=== PATIENT | female | born 1985 | race Caucasian/White ===

== ENCOUNTER 2016-07-17 04:27 | Emergency (ER) | payer BC, OTHER ==
[2016-07-17] MEDS ORDERED: KETOROLAC 60 MG/2 ML VIAL IVP STA (04:43)
[2016-07-17] MEDS ORDERED: MAG HYDROX/AL HYDROX/SIMETH 30 ML, HYOSCYAMINE ELIXIR 10 ML, CIMETIDINE HCL 300 MG PO STA ×3 (04:45)
--- NOTE | 2016-07-17 04:45 | ED ---
General Adult HPI - General Stated complaint: Chest pains Time Seen by Provider: 07/17/16 04:35 Source: RN notes reviewed - History of Present Illness Initial comments: This is a 30-year-old female who presents emergency Department complaining of chest pain that is at the base of her sternum. Patient states pressing on it makes it feel better. Patient states she has had it over 50 times in the last year. Patient states she seen a booster operator as well as had a stress test all of which was negative. Patient states she had the pain again tonight usually laying down makes it worse and sitting up makes it better however tonight sitting up did not seem to relieve it so she came to the emergency department. Patient states she's been here multiple times before. Patient denies any fever chills or cough. Patient denies lifting anything or moving anything heavy recently. Patient states the pain is sharp in nature. Patient denies any diaphoresis patient denies any shortness of breath patient denies any nausea or vomiting. Patient did not take anything for the pain. Patient does states she is a smoker. She denies diabetes or hypertension - Related Data Home Medications Medication Instructions Recorded Confirmed No Known Home Medications [No 07/17/16 07/17/16 Known Home Medications] Allergies Allergy/AdvReac Type Severity Reaction Status Date / Time No Known Allergies Allergy Verified 11/08/15 06:56 Review of Systems ROS Statement: Those systems with pertinent positive or pertinent negative responses have been documented in the HPI. ROS Other: All systems not noted in ROS Statement are negative. Past Medical History Past Medical History: GERD/Reflux, Hyperlipidemia Additional Past Medical History / Comment(s): 03/03/15 Pt presented to [facility] ER with L sided chest pain which started today while at work here at [facility]. Pain is constant and sharp and is stabbing. Pain rediated thru toher back and she had diaphoresis and vomited. Pt being admitted with clinical impression of chest pain, unstable angina pectoris. Other HX: Pt states she has high lipids but not on medication. History of Any Multi-Drug Resistant Organisms: None Reported Past Surgical History: No Surgical Hx Reported, Back Surgery Additional Past Surgical History / Comment(s): 06/24/14 laminectomy and decompression L5-S1 and discectomy for decompression L5-S1, 05/06/14 EGD and colonoscopy with bxs which were negative. Additional Past Anesthesia/Blood Transfusion Reaction / Comment(s): Pt states she had a severe headach post op day 1. Past Psychological History: Anxiety Additional Psychological History / Comment(s): Pt lives with her boyfriend. Pt is independent. She works in [facility] de[employer] Smoking Status: Current every day smoker Past Alcohol Use History: Rare Additional Past Alcohol Use History / Comment(s): Pt started smoking at age 13 yrs old and is a ppd to 1 1/2 ppd smoker. Past Drug Use History: None Reported - Past Family History Mother Family Medical History: Cancer Father Family Medical History: Coronary Artery Disease (CAD), Myocardial Infarction ([place] ) General Exam - General Exam Comments Initial Comments: GENERAL: Patient is well-developed and well-nourished. Patient is nontoxic and well- hydrated and is in mild distress. ENT: Neck is soft and supple. No significant lymphadenopathy is noted. Oropharynx is clear. Moist mucous membranes. Neck has full range of motion without eliciting any pain. There is no thyroid enlargement and no masses were felt. EYES: The sclera were anicteric and conjunctiva were pink and moist. Extraocular movements were intact and pupils were equal round and reactive to light. Eyelids were unremarkable. PULMONARY: Unlabored respirations. Good breath sounds bilaterally. No audible rales rhonchi or wheezing was noted. CARDIOVASCULAR: There is a regular rate and rhythm without any murmurs gallops or rubs. ABDOMEN: Soft and nontender with normal bowel sounds. No palpable organomegaly was noted. There is no palpable pulsatile mass. SKIN: Skin is clear with no lesions or rashes and otherwise unremarkable. NEUROLOGIC: Patient is alert and oriented x3. Cranial nerves II through XII are grossly intact. Motor and sensory are also intact. Normal speech, volume and content. Symmetrical smile. MUSCULOSKELETAL: Normal extremities with adequate strength and full range of motion. No lower extremity swelling or edema. No calf tenderness. LYMPHATICS: No significant lymphadenopathy is noted PSYCHIATRIC: Normal psychiatric evaluation. Course Vital Signs 07/17/16 07/17/16 04:44 05:19 Temperature 97.2 F L Pulse Rate 68 65 Respiratory 20 18 Rate Blood Pressure 152/105 135/82 O2 Sat by Pulse 98 100 Oximetry Medical Decision Making - Medical Decision Making EKG shows a normal sinus rhythm at 73 bpm FL interval is 146 dresses 84 QT interval 392 QTC is 431. Patient's EKG shows no ST segment elevation or depression. I went back and spoke with the patient patient stated that she took the GI cocktail and reduced her symptoms considerably. Patient states she did not want to stay in the hospital so she'll follow-up with Dr. Sena. Patient states she wasn't concerned about it being anything serious because she has had over 50 times in the last year. - Lab Data Result diagrams: 07/17/16 04:48 07/17/16 04:48 Lab Results 07/17/16 07/17/16 07/17/16 Range/Units 04:48 04:48 04:48 WBC 8.9 (3.8-10.6) k/uL RBC 4.91 (3.80-5.40) m/uL Hgb 15.2 (11.4-16.0) gm/dL Hct 45.6 (34.0-46.0) % MCV 92.9 (80.0-100.0) fL MCH 31.0 (25.0-35.0) pg MCHC 33.4 (31.0-37.0) g/dL RDW 12.9 (11.5-15.5) % Plt Count 246 (150-450) k/uL Neutrophils % 59 % Lymphocytes % 29 % Monocytes % 5 % Eosinophils % 3 % Basophils % 2 % Neutrophils # 5.3 (1.3-7.7) k/uL Lymphocytes # 2.6 (1.0-4.8) k/uL Monocytes # 0.4 (0-1.0) k/uL Eosinophils # 0.3 (0-0.7) k/uL Basophils # 0.2 (0-0.2) k/uL PT (9.0-12.0) sec INR (<1.1) APTT (22.0-30.0) sec Sodium 141 (137-145) mmol/L Potassium 3.7 (3.5-5.1) mmol/L Chloride 106 (98-107) mmol/L Carbon Dioxide 28 (22-30) mmol/L Anion Gap 7 mmol/L BUN 7 (7-17) mg/dL Creatinine 0.61 (0.52-1.04) mg/dL Est GFR (MDRD) Af Amer >60 (>60 ml/min/1.73 sqM) Est GFR (MDRD) Non-Af >60 (>60 ml/min/1.73 sqM) Glucose 117 H (74-99) mg/dL Calcium 9.2 (8.4-10.2) mg/dL Magnesium 2.0 (1.6-2.3) mg/dL Total Bilirubin 0.4 (0.2-1.3) mg/dL AST 20 (14-36) U/L ALT 19 (9-52) U/L Alkaline Phosphatase 66 (38-126) U/L Total Creatine Kinase 80 (30-135) U/L CK-MB (CK-2) 0.9 (0.0-2.4) ng/mL CK-MB (CK-2) Rel Index 1.1 Troponin I <0.012 (0.000-0.034) ng/mL Total Protein 7.1 (6.3-8.2) g/dL Albumin 3.9 (3.5-5.0) g/dL Amylase 64 (30-110) U/L Lipase 156 (23-300) U/L // Range/Units 04:48 WBC (3.8-10.6) k/uL RBC (3.80-5.40) m/uL Hgb (11.4-16.0) gm/dL Hct (34.0-46.0) % MCV (80.0-100.0) fL MCH (25.0-35.0) pg MCHC (31.0-37.0) g/dL RDW (11.5-15.5) % Plt Count (150-450) k/uL Neutrophils % % Lymphocytes % % Monocytes % % Eosinophils % % Basophils % % Neutrophils # (1.3-7.7) k/uL Lymphocytes # (1.0-4.8) k/uL Monocytes # (0-1.0) k/uL Eosinophils # (0-0.7) k/uL Basophils # (0-0.2) k/uL PT 11.0 (9.0-12.0) sec INR 1.1 (<1.1) APTT 25.0 (22.0-30.0) sec Sodium (137-145) mmol/L Potassium (3.5-5.1) mmol/L Chloride (98-107) mmol/L Carbon Dioxide (22-30) mmol/L Anion Gap mmol/L BUN (7-17) mg/dL Creatinine (0.52-1.04) mg/dL Est GFR (MDRD) Af Amer (>60 ml/min/1.73 sqM) Est GFR (MDRD) Non-Af (>60 ml/min/1.73 sqM) Glucose (74-99) mg/dL Calcium (8.4-10.2) mg/dL Magnesium (1.6-2.3) mg/dL Total Bilirubin (0.2-1.3) mg/dL AST (14-36) U/L ALT (9-52) U/L Alkaline Phosphatase (38-126) U/L Total Creatine Kinase (30-135) U/L CK-MB (CK-2) (0.0-2.4) ng/mL CK-MB (CK-2) Rel Index Troponin I (0.000-0.034) ng/mL Total Protein (6.3-8.2) g/dL Albumin (3.5-5.0) g/dL Amylase (30-110) U/L Lipase (23-300) U/L Disposition Clinical Impression: Atypical chest pain Disposition: HOME SELF-CARE Condition: Good Instructions: Chest Pain (ED) Referrals: Bret Parker MD [Primary Care Provider] - 1-2 days Time of Disposition: 06:14
[2016-07-17 05:11] LABS: Basophils # (A) 0.2 k/uL (0-0.2); Basophils % (A) 2 %; CH 31.6; CHCM 34.1; Eosinophils # (A) 0.3 k/uL (0-0.7); Eosinophils % (A) 3 %; HCT 45.6 % (34.0-46.0); HDW 2.25; HGB 15.2 gm/dL (11.4-16.0); Luc # (Auto) 0.21; Luc % (Auto) 2; Lymphocytes # (A) 2.6 k/uL (1.0-4.8); Lymphocytes % (A) 29 %; MCHC 33.4 g/dL (31.0-37.0); MCV 92.9 fL (80.0-100.0); Mean Platelet Volume 7.8; Monocytes # (A) 0.4 k/uL (0-1.0); Monocytes % (A) 5 %; Neutrophils # (A) 5.3 k/uL (1.3-7.7); Neutrophils % (A) 59 %; RBC 4.91 m/uL (3.80-5.40); RDW 12.9 % (11.5-15.5); WBC 8.9 k/uL (3.8-10.6); WBC (Perox) 8.56
[2016-07-17 05:19] VITALS: RESP 18
[2016-07-17 05:23] LABS: INR 1.1 (<1.1)
[2016-07-17 05:39] LABS: ALT 19 U/L (9-52); AST 20 U/L (14-36); Alkaline Phosphatase 66 U/L (38-126); Amylase 64 U/L (30-110); Anion Gap 7 mmol/L; Blood Urea Nitrogen 7 mg/dL (7-17); Calcium 9.2 mg/dL (8.4-10.2); Carbon Dioxide 28 mmol/L (22-30); Chloride 106 mmol/L (98-107); Glucose 117 mg/dL (74-99); Non-African American GFR(MDRD) >60 (>60 ml/min/1.73 sqM); Potassium 3.7 mmol/L (3.5-5.1); Sodium 141 mmol/L (137-145); Total Bilirubin 0.4 mg/dL (0.2-1.3); Total Protein 7.1 g/dL (6.3-8.2)
--- NOTE | 2016-07-17 05:39 | XR ---
EXAM: XR Chest, 2 Views. CLINICAL HISTORY: Reason: Chest Pain TECHNIQUE: Frontal and lateral views of the chest. COMPARISON: Comparison is made to prior exam dated 04/08/15 FINDINGS: Lungs: Unremarkable. No consolidation. Pleural spaces: Unremarkable. No pneumothorax. Heart: Unremarkable. No cardiomegaly. Mediastinum: Unremarkable. Bones: Unremarkable. No acute fracture. IMPRESSION: Normal chest.
[2016-07-17 05:51] LABS: Creatine Kinase 80 U/L (30-135)
[2016-07-17 06:04] LABS: Creatine Kinase MB 0.9 ng/mL (0.0-2.4); Troponin I <0.012 ng/mL (0.000-0.034)
[2016-07-17 06:16] VITALS: BP 132/93; PULSE 64; TEMP 97.8
== END 2016-07-17 06:27 | disposition home or self-care (01) ==
LOC: EC 04:27
DX: R07.89 Other chest pain (principal); F17.200 Nicotine dependence, unspecified, uncomplicated; Z82.49 Family history of ischemic heart disease and other diseases of the circulatory system; Z86.79 Personal history of other diseases of the circulatory system
CPT/HCPCS: 99285; 96374; 36415; 93005; 80053; 82150; 82550; 82553; 83690; 83735; 84484; 85025; 85610; 85730; 71020; J1885

== ENCOUNTER 2016-07-23 02:19 | Emergency (ER) | payer BC, OTHER ==
[2016-07-23 02:24] VITALS: TEMP 98.2
[2016-07-23] MEDS ORDERED: SODIUM CHLORIDE 0.9% 1,000 ML IV STA (02:37)
[2016-07-23] MEDS ORDERED: HYDROmorphone 1 MG/ML 1 ML SYRINGE IVP STA (02:38)
[2016-07-23] MEDS ORDERED: ONDANSETRON 4 MG/2 ML VIAL IVP STA (02:38)
[2016-07-23] MEDS ORDERED: MAG HYDROX/AL HYDROX/SIMETH 30 ML, HYOSCYAMINE ELIXIR 10 ML, CIMETIDINE HCL 300 MG, LID... PO STA ×4 (02:38)
--- NOTE | 2016-07-23 02:42 | ED ---
Abdominal Pain HPI - General Chief Complaint: Abdominal Pain Stated Complaint: Abd pain, Chest pain Time Seen by Provider: 07/23/16 02:25 Source: patient, RN notes reviewed Mode of arrival: wheelchair Limitations: no limitations - History of Present Illness Initial Comments: 30-year-old female presents with chief complaint of pain. Patient has had chronic epigastric pain that radiates into the chest for the past 2 years. Patient states it's exactly like her typical pain. Patient states is exactly like her typical episode. Patient states she seen unit controller she seen GI doctors for this. Patient states she is currently in the middle of an outpatient workup to further evaluate her pain. Patient states today she just needs something to help her get through the pain due to the fact that is causing her a lot of discomfort tonight she's having hard time sleeping. Patient states that she has had every workup under the sun. Patient states that she just needs the pain improved so she can get some sleep. Patient states that she is not having any shortness of breath with this. Patient states this is exactly like her normal pain.Patient denies any recent fever, chills, shortness of breath, chest pain, back pain, nausea vomiting, numbness or tingling, dysuria or hematuria, constipation or diarrhea, headaches or visual changes, or any other current symptoms. - Related Data Home Medications Medication Instructions Recorded Confirmed No Known Home Medications [No 07/17/16 07/23/16 Known Home Medications] Allergies Allergy/AdvReac Type Severity Reaction Status Date / Time No Known Allergies Allergy Verified 07/23/16 02:24 Review of Systems ROS Statement: Those systems with pertinent positive or pertinent negative responses have been documented in the HPI. ROS Other: All systems not noted in ROS Statement are negative. Past Medical History Past Medical History: GERD/Reflux, Hyperlipidemia Additional Past Medical History / Comment(s): 03/03/15 Pt presented to [facility] ER with L sided chest pain which started today while at work here at [facility]. Pain is constant and sharp and is stabbing. Pain rediated thru toher back and she had diaphoresis and vomited. Pt being admitted with clinical impression of chest pain, unstable angina pectoris. Other HX: Pt states she has high lipids but not on medication. History of Any Multi-Drug Resistant Organisms: None Reported Past Surgical History: No Surgical Hx Reported, Back Surgery Additional Past Surgical History / Comment(s): 4/1/15 laminectomy and decompression L5-S1 and discectomy for decompression L5-S1, 05/06/14 EGD and colonoscopy with bxs which were negative. Additional Past Anesthesia/Blood Transfusion Reaction / Comment(s): Pt states she had a severe headach post op day 1. Past Psychological History: Anxiety Additional Psychological History / Comment(s): Pt lives with her boyfriend. Pt is independent. She works in [facility] [employer] [facility] [employer] de[employer]. Smoking Status: Current every day smoker Past Alcohol Use History: Rare Additional Past Alcohol Use History / Comment(s): Pt started smoking at age 13 yrs old and is a ppd to 03/27 ppd smoker. Past Drug Use History: None Reported - Past Family History Mother Family Medical History: Cancer Father Family Medical History: Coronary Artery Disease (CAD), Myocardial Infarction ([place] ) General Exam - General Exam Comments Initial Comments: General: The patient is awake and alert, in no distress, and does not appear acutely ill. Eye: Pupils are equal, round and reactive to light, extra-ocular movements are intact; there is normal conjunctiva bilaterally. No signs of icterus. Ears, nose, mouth and throat: There are moist mucous membranes and no oral lesions. Neck: The neck is supple, there is no tenderness. Cardiovascular: There is a regular rate and rhythm. No murmur, rub or gallop is appreciated. Respiratory: Lungs are clear to auscultation, respirations are non-labored, breath sounds are equal. No wheezes, stridor, rales, or rhonchi. Gastrointestinal: Soft, non-distended, non-tender abdomen without masses or organomegaly noted. There is no rebound or guarding present. No CVA tenderness. Bowel sounds are unremarkable. Back: There is no tenderness to palpation in the midline. There is no obvious deformity. No rashes noted. Musculoskeletal: Normal ROM, no tenderness, There is no pedal edema. There is no calf tenderness or swelling. Sensation intact. Pulses equal bilaterally 2+. Neurological: CN II-XII intact, There are no obvious motor or sensory deficits. Coordination appears grossly intact. Speech is normal. Skin: Skin is warm and dry and no rashes or lesions are noted. Psychiatric: Cooperative, appropriate mood & affect, normal judgment. Limitations: no limitations Course Vital Signs 07/23/16 02:22 Temperature 98.2 F Pulse Rate 90 Respiratory 20 Rate Blood Pressure 182/98 O2 Sat by Pulse 98 Oximetry Medical Decision Making - Medical Decision Making 30-year-old male presents for an episode of her chronic pain. At this time patient's laboratory is reviewed as well as an EKG that did not show any acute abnormalities or changes from previous results. At this time we did give patient pain medication. She is feeling better. We discussed that she needs to have close follow-up with her doctor and return parameters. We discussed all the patient's questions. She stated that she understood and she has been given plan. All questions have been answered. She will be discharged home. - Lab Data Result diagrams: 07/23/16 02:48 07/23/16 02:48 Lab Results 07/23/16 07/23/16 Range/Units 02:48 02:48 WBC 9.1 (3.8-10.6) k/uL RBC 4.87 (3.80-5.40) m/uL Hgb 14.9 (11.4-16.0) gm/dL Hct 44.4 (34.0-46.0) % MCV 91.1 (80.0-100.0) fL MCH 30.6 (25.0-35.0) pg MCHC 33.6 (31.0-37.0) g/dL RDW 12.8 (11.5-15.5) % Plt Count 238 (150-450) k/uL Neutrophils % 60 % Lymphocytes % 28 % Monocytes % 6 % Eosinophils % 2 % Basophils % 2 % Neutrophils # 5.5 (1.3-7.7) k/uL Lymphocytes # 2.6 (1.0-4.8) k/uL Monocytes # 0.5 (0-1.0) k/uL Eosinophils # 0.2 (0-0.7) k/uL Basophils # 0.2 (0-0.2) k/uL Sodium 141 (137-145) mmol/L Potassium 3.6 (3.5-5.1) mmol/L Chloride 107 (98-107) mmol/L Carbon Dioxide 25 (22-30) mmol/L Anion Gap 9 mmol/L BUN 8 (7-17) mg/dL Creatinine 0.60 (0.52-1.04) mg/dL Est GFR (MDRD) Af Amer >60 (>60 ml/min/1.73 sqM) Est GFR (MDRD) Non-Af >60 (>60 ml/min/1.73 sqM) Glucose 118 H (74-99) mg/dL Calcium 9.5 (8.4-10.2) mg/dL Total Bilirubin 0.3 (0.2-1.3) mg/dL AST 17 (14-36) U/L ALT 27 (9-52) U/L Alkaline Phosphatase 65 (38-126) U/L Total Protein 7.0 (6.3-8.2) g/dL Albumin 4.0 (3.5-5.0) g/dL Amylase 72 (30-110) U/L Lipase 106 (23-300) U/L - EKG Data -: EKG Interpreted by Me 07/23/16 03:18 Sinus bradycardia 46 bpm, normal axis, no atopy, no S-T depressions or elevations, Disposition Clinical Impression: Chronic pain Disposition: HOME SELF-CARE Condition: Stable Instructions: Chronic Pain (ED) Additional Instructions: Please use medication as discussed. Please follow up with family doctor if symptoms have not improved over the next two days. Please return to the emergency room if your symptoms increase or worsen or for any other concerns. Referrals: Bret Parker MD [Primary Care Provider] - 1-2 days
[2016-07-23 02:57] LABS: Basophils # (A) 0.2 k/uL (0-0.2); Basophils % (A) 2 %; CH 31.6; CHCM 34.8; Eosinophils # (A) 0.2 k/uL (0-0.7); Eosinophils % (A) 2 %; HCT 44.4 % (34.0-46.0); HDW 2.31; HGB 14.9 gm/dL (11.4-16.0); Luc # (Auto) 0.19; Luc % (Auto) 2; Lymphocytes # (A) 2.6 k/uL (1.0-4.8); Lymphocytes % (A) 28 %; MCH 30.6 pg (25.0-35.0); MCHC 33.6 g/dL (31.0-37.0); MCV 91.1 fL (80.0-100.0); Monocytes # (A) 0.5 k/uL (0-1.0); Monocytes % (A) 6 %; Neutrophils # (A) 5.5 k/uL (1.3-7.7); Neutrophils % (A) 60 %; RBC 4.87 m/uL (3.80-5.40); RDW 12.8 % (11.5-15.5); WBC 9.1 k/uL (3.8-10.6); WBC (Perox) 8.75
[2016-07-23 03:09] LABS: ALT 27 U/L (9-52); AST 17 U/L (14-36); Alkaline Phosphatase 65 U/L (38-126); Amylase 72 U/L (30-110); Anion Gap 9 mmol/L; Blood Urea Nitrogen 8 mg/dL (7-17); Calcium 9.5 mg/dL (8.4-10.2); Carbon Dioxide 25 mmol/L (22-30); Chloride 107 mmol/L (98-107); Glucose 118 mg/dL (74-99); Non-African American GFR(MDRD) >60 (>60 ml/min/1.73 sqM); Potassium 3.6 mmol/L (3.5-5.1); Sodium 141 mmol/L (137-145); Total Bilirubin 0.3 mg/dL (0.2-1.3)
[2016-07-23 03:38] VITALS: BP 140/85; PULSE 55; RESP 18
== END 2016-07-23 03:38 | disposition home or self-care (01) ==
LOC: EC 02:19
DX: R10.13 Epigastric pain (principal); G89.29 Other chronic pain; R07.9 Chest pain, unspecified; F17.200 Nicotine dependence, unspecified, uncomplicated
CPT/HCPCS: 36415; 93005; 80053; 82150; 83690; 85025; 99284; 96374; 96375; 96361; J2405; J1170

== ENCOUNTER 2017-10-16 16:29 | Emergency (ER) | payer BC, OTHER ==
--- NOTE | 2017-10-16 17:24 | ED ---
Female Urogenital HPI - General Chief complaint: Vaginal Bleeding Stated complaint: /cramping Time Seen by Provider: 10/16/17 17:05 Source: patient, RN notes reviewed Mode of arrival: ambulatory Limitations: no limitations - History of Present Illness Initial comments: This is a 32-year-old female who presents to the emergency department chief complaint of abdominal pain and vaginal bleeding. Patient states that she took a test last week and was positive. Patient states she did not believe she was able to have children she has had difficulty in the past. She has never been before. Patient states she is unsure how far along she could be as she only gets periods 2-3 times per year. She states her last period was either in June or July. Patient states that last evening she developed a sudden sharp stabbing pain in the lower abdomen. She states that she went to the bathroom this morning she wiped and there was light pink blood on the toilet paper. Patient states that she continues to have some pain. States that she feels queasy. She denies fevers or chills, chest pain shortness of breath, vomiting, diarrhea or constipation, dysuria or hematuria. - Related Data Home Medications Medication Instructions Recorded Confirmed Pnv No.95/Ferrous Fum/Folic AC 1 tab PO DAILY 10/16/17 10/16/17 [ Multivitamin Tablet] Previous Rx's Medication Instructions Recorded Cephalexin [Keflex] 500 mg PO Q12HR #10 cap 10/16/17 Allergies Allergy/AdvReac Type Severity Reaction Status Date / Time No Known Allergies Allergy Verified 10/16/17 17:04 Review of Systems ROS Statement: Those systems with pertinent positive or pertinent negative responses have been documented in the HPI. ROS Other: All systems not noted in ROS Statement are negative. Past Medical History Past Medical History: GERD/Reflux, Hyperlipidemia Additional Past Medical History / Comment(s): 03/03/15 Pt presented to [facility] ER with L sided chest pain which started today while at work here at [facility]. Pain is constant and sharp and is stabbing. Pain rediated thru toher back and she had diaphoresis and vomited. Pt being admitted with clinical impression of chest pain, unstable angina pectoris. Other HX: Pt states she has high lipids but not on medication. History of Any Multi-Drug Resistant Organisms: None Reported Past Surgical History: No Surgical Hx Reported, Back Surgery, Cholecystectomy Additional Past Surgical History / Comment(s): 06/24/14 laminectomy and decompression L5-S1 and discectomy for decompression L5-S1, 05/06/14 EGD and colonoscopy with bxs which were negative. Additional Past Anesthesia/Blood Transfusion Reaction / Comment(s): Pt states she had a severe headach post op day 1. Past Psychological History: Anxiety Smoking Status: Current every day smoker Past Alcohol Use History: Rare Past Drug Use History: None Reported - Past Family History Mother Family Medical History: Cancer Father Family Medical History: Coronary Artery Disease (CAD), Myocardial Infarction ([place] ) General Exam - General Exam Comments Initial Comments: General: Awake and alert, well-developed; in no apparent distress. HEENT: Head atraumatic, normocephalic. Pupils are equal, round and reactive to light. Extraocular movements intact. Oropharynx moist without erythema or exudate. Neck: Supple. Normal ROM. Cardiovascular: Regular rate and rhythm. No murmurs, rubs or gallops. Chest symmetrical. Respiratory: Lungs clear to auscultation bilaterally. No wheezes, rales or rhonchi. Normal respiratory effort with no use of accessory muscles. Abdomen: Soft, non-tender, non-distended. No rigidity, rebound or guarding. Normal bowel sounds in all 4 quadrants. Musculoskeletal: Normal ROM, no tenderness bilateral upper and lower extremities. Ambulating normally. Skin: [place], warm and dry without rashes or lesions. Neurological: Alert and oriented x3. CN II-XII grossly intact. Speech is fluent and answers are appropriate. No focal neuro deficits. Psychiatric: Normal mood and affect. No overt signs of depression or anxiety noted. Limitations: no limitations Course Vital Signs 10/16/17 16:37 Temperature 98.4 F Pulse Rate 83 Respiratory 18 Rate Blood Pressure 121/85 O2 Sat by Pulse 99 Oximetry - Reevaluation(s) Reevaluation #1: 10/16/17 19:17 At this time, case is signed out to Dr. Lord, attending physician. Medical Decision Making - Medical Decision Making This is a 32-year-old female who presents to the emergency department with chief complaint of abdominal pain and vaginal bleeding. Patient reports having a positive test last week. She states that she developed abdominal pain last evening and had noticed some vaginal bleeding this morning while using the bathroom. CBC and CMP are unremarkable. UA revealed large blood, large leukocyte esterase, 34 red blood cells, 47 white blood cells, 57 squamous epithelial cells and occasional bacteria. Patient will be treated for asymptomatic bacteria with Keflex. Blood type is A negative. She will receive Rhogam. Obstetrical ultrasound revealed a single IUP at 8 weeks with a heart rate of 141 bpm. No complicating processes seen. Vital signs have been stable and patient is in no acute distress. Recommended following up with LABEL MACHINE OPERATOR. Patient is provided with information to Dr. Khan's office. - Lab Data Result diagrams: 10/16/17 17:31 10/16/17 17:31 Lab Results 10/16/17 10/16/17 10/16/17 Range/Units 17:31 17:31 17:31 WBC 10.7 H (3.8-10.6) k/uL RBC 4.88 (3.80-5.40) m/uL Hgb 14.6 (11.4-16.0) gm/dL Hct 43.9 (34.0-46.0) % MCV 90.0 (80.0-100.0) fL MCH 29.9 (25.0-35.0) pg MCHC 33.2 (31.0-37.0) g/dL RDW 13.0 (11.5-15.5) % Plt Count 280 (150-450) k/uL Neutrophils % 67 % Lymphocytes % 24 % Monocytes % 4 % Eosinophils % 2 % Basophils % 1 % Neutrophils # 7.2 (1.3-7.7) k/uL Lymphocytes # 2.6 (1.0-4.8) k/uL Monocytes # 0.5 (0-1.0) k/uL Eosinophils # 0.2 (0-0.7) k/uL Basophils # 0.1 (0-0.2) k/uL Sodium 135 L (137-145) mmol/L Potassium 3.8 (3.5-5.1) mmol/L Chloride 103 (98-107) mmol/L Carbon Dioxide 22 (22-30) mmol/L Anion Gap 10 mmol/L BUN 8 (7-17) mg/dL Creatinine 0.40 L (0.52-1.04) mg/dL Est GFR (CKD-EPI)AfAm >90 (>60 ml/min/1.73 sqM) Est GFR (CKD-EPI)NonAf >90 (>60 ml/min/1.73 sqM) Glucose 85 (74-99) mg/dL Calcium 10.1 (8.4-10.2) mg/dL Total Bilirubin 0.3 (0.2-1.3) mg/dL AST 23 (14-36) U/L ALT 25 (9-52) U/L Alkaline Phosphatase 58 (38-126) U/L Total Protein 6.8 (6.3-8.2) g/dL Albumin 4.2 (3.5-5.0) g/dL Urine Color Urine Appearance (Clear) Urine pH (5.0-8.0) Ur Specific [place] (1.001-1.035) Urine Protein (Negative) Urine Glucose (UA) (Negative) Urine Ketones (Negative) Urine Blood (Negative) Urine Nitrite (Negative) Urine Bilirubin (Negative) Urine Urobilinogen (<2.0) mg/dL Ur Leukocyte Esterase (Negative) Urine RBC (0-5) /hpf Urine WBC (0-5) /hpf Ur Squamous Epith Cells (0-4) /hpf Urine Bacteria (None) /hpf Urine Mucus (None) /hpf Blood Type A Negative Blood Type Recheck No 10/16/17 Range/Units 17:55 WBC (3.8-10.6) k/uL RBC (3.80-5.40) m/uL Hgb (11.4-16.0) gm/dL Hct (34.0-46.0) % MCV (80.0-100.0) fL MCH (25.0-35.0) pg MCHC (31.0-37.0) g/dL RDW (11.5-15.5) % Plt Count (150-450) k/uL Neutrophils % % Lymphocytes % % Monocytes % % Eosinophils % % Basophils % % Neutrophils # (1.3-7.7) k/uL Lymphocytes # (1.0-4.8) k/uL Monocytes # (0-1.0) k/uL Eosinophils # (0-0.7) k/uL Basophils # (0-0.2) k/uL Sodium (137-145) mmol/L Potassium (3.5-5.1) mmol/L Chloride (98-107) mmol/L Carbon Dioxide (22-30) mmol/L Anion Gap mmol/L BUN (7-17) mg/dL Creatinine (0.52-1.04) mg/dL Est GFR (CKD-EPI)AfAm (>60 ml/min/1.73 sqM) Est GFR (CKD-EPI)NonAf (>60 ml/min/1.73 sqM) Glucose (74-99) mg/dL Calcium (8.4-10.2) mg/dL Total Bilirubin (0.2-1.3) mg/dL AST (14-36) U/L ALT (9-52) U/L Alkaline Phosphatase (38-126) U/L Total Protein (6.3-8.2) g/dL Albumin (3.5-5.0) g/dL Urine Color Yellow Urine Appearance Turbid H (Clear) Urine pH 6.0 (5.0-8.0) Ur Specific [place] 1.011 (1.001-1.035) Urine Protein 1+ H (Negative) Urine Glucose (UA) Negative (Negative) Urine Ketones 2+ H (Negative) Urine Blood Large H (Negative) Urine Nitrite Negative (Negative) Urine Bilirubin Negative (Negative) Urine Urobilinogen <2.0 (<2.0) mg/dL Ur Leukocyte Esterase Large H (Negative) Urine RBC 34 H (0-5) /hpf Urine WBC 47 H (0-5) /hpf Ur Squamous Epith Cells 57 H (0-4) /hpf Urine Bacteria Occasional H (None) /hpf Urine Mucus Rare H (None) /hpf Blood Type Blood Type Recheck - Radiology Data Radiology results: report reviewed Obstetrical ultrasound impression: Single viable IUP 8 weeks 0 days with RACHEL of 05/28/2018. No complicating process seen. Disposition Clinical Impression: , Threatened , Asymptomatic bacteriuria Disposition: HOME SELF-CARE Condition: Good Instructions: (ED), Threatened Miscarriage (ED) Additional Instructions: Please follow-up with LABEL MACHINE OPERATOR within 1-2 days. Please follow up with primary care provider within 1-2 days. Return to emergency department if symptoms should worsen or any concerns arise. s Prescriptions: Cephalexin [Keflex] 500 mg PO Q12HR #10 cap Is patient prescribed a controlled substance at d/c from ED?: No Referrals: Bret Parker MD [Primary Care Provider] - 1-2 days Catie Khan MD [STAFF PHYSICIAN] - 1-2 days
[2017-10-16 17:47] LABS: Basophils # (A) 0.1 k/uL (0-0.2); Basophils % (A) 1 %; Eosinophils # (A) 0.2 k/uL (0-0.7); Eosinophils % (A) 2 %; HCT 43.9 % (34.0-46.0); HGB 14.6 gm/dL (11.4-16.0); Lymphocytes # (A) 2.6 k/uL (1.0-4.8); Lymphocytes % (A) 24 %; MCH 29.9 pg (25.0-35.0); MCHC 33.2 g/dL (31.0-37.0); Mean Platelet Volume 7.9; Monocytes # (A) 0.5 k/uL (0-1.0); Monocytes % (A) 4 %; Neutrophils # (A) 7.2 k/uL (1.3-7.7); Neutrophils % (A) 67 %; Platelet Count 280 k/uL (150-450); RBC 4.88 m/uL (3.80-5.40); WBC 10.7 k/uL (3.8-10.6)
[2017-10-16 18:04] LABS: Appearance,Urine Turbid (Clear); Bacteria,Urine Occasional /hpf; Bilirubin,Urine Negative (Negative); Blood,Urine Large (Negative); Color,Urine Yellow; Glucose,Urine (UA) Negative (Negative); Ketones,Urine 2+ (Negative); Leukocyte Esterase,Urine Large (Negative); Mucus,Urine Rare /hpf; Nitrite,Urine Negative (Negative); Protein,Urine 1+ (Negative); RBC,Urine 34 /hpf (0-5); Specific Gravity,Urine 1.011 (1.001-1.035); Squamous Epithelial Cell,Urine 57 /hpf (0-4); Urobilinogen,Urine <2.0 mg/dL (<2.0); WBC,Urine 47 /hpf (0-5)
[2017-10-16 18:05] LABS: ALT 25 U/L (9-52); AST 23 U/L (14-36); Albumin 4.2 g/dL (3.5-5.0); Alkaline Phosphatase 58 U/L (38-126); Anion Gap 10 mmol/L; Blood Urea Nitrogen 8 mg/dL (7-17); Calcium 10.1 mg/dL (8.4-10.2); Carbon Dioxide 22 mmol/L (22-30); Chloride 103 mmol/L (98-107); Glucose 85 mg/dL (74-99); Potassium 3.8 mmol/L (3.5-5.1); Sodium 135 mmol/L (137-145); Total Bilirubin 0.3 mg/dL (0.2-1.3); Total Protein 6.8 g/dL (6.3-8.2)
--- NOTE | 2017-10-16 18:57 | US ---
EXAMINATION TYPE: Transabdominal DATE OF EXAM: 06/26/17 COMPARISON: NONE CLINICAL HISTORY: abd pain, vag bleed. vaginal bleeding EXAM PERFORMED: Transabdominal (TA) EXAM MEASUREMENTS: GESTATIONAL AGE / DATING Physician Established: Not yet established Dates by LMP: LMP unknown Dates by First Scan: no prior Dates by Current Scan for: (8 weeks/0 days) EDC: 05/28/18 MATERNAL ANATOMY Uterus: 6.5 x 4.4 x 8.2cm Right Ovary: 2.6 x 1.9 x 2.0cm Left Ovary: 2.6 x 1.6 x 2.1cm Post CDS / Adnexa: wnl Presence of free fluid: no GESTATION / SURVEY CRL: 1.6cm (8 weeks/0 days) Yolk Sac (normal less than 6mm): 0.3cm Heart Rate: 141 bpm Rhythm: Normal IUP: Viable IUP Date of LMP: unknown Beta HcG (if available): Not available at this time Single viable IUP 8wks/0days with RACHEL of 05/28/18. IMPRESSION: No complicating process seen.
[2017-10-16] MEDS ORDERED: Rhogam IMMUNE GLOBULIN 1,500 UNIT/1 ML IM ONE (19:03)
[2017-10-16] MEDS ORDERED: CEPHALEXIN 500 MG CAP PO STA (19:09)
[2017-10-16 19:20] LABS: HCG,Quantitative Serum 82851.1 mIU/mL
[2017-10-16 20:37] VITALS: BP 125/79; PULSE 101; RESP 20; TEMP 98
== END 2017-10-16 20:37 | disposition home or self-care (01) ==
LOC: EC 16:29
DX: O20.0 Threatened abortion (principal); O99.89 Other specified diseases and conditions complicating pregnancy, childbirth and the puerperium; O99.331 Smoking (tobacco) complicating pregnancy, first trimester; R82.71 Bacteriuria; F17.200 Nicotine dependence, unspecified, uncomplicated; Z3A.08 8 weeks gestation of pregnancy
CPT/HCPCS: 99284; 96372; 36415; 86900; 86901; 80053; 85025; 86850; 81001; 84702; 76801; J2791

== ENCOUNTER 2017-11-22 13:49 | Emergency (ER) | payer OTHER ==
[2017-11-22] MEDS ORDERED: SODIUM CHLORIDE 0.9% 1,000 ML IV STA (15:33)
[2017-11-22 15:55] LABS: Basophils # (A) 0.1 k/uL (0-0.2); Basophils % (A) 1 %; Eosinophils # (A) 0.2 k/uL (0-0.7); Eosinophils % (A) 2 %; HCT 44.3 % (34.0-46.0); HGB 15.1 gm/dL (11.4-16.0); Lymphocytes # (A) 2.4 k/uL (1.0-4.8); Lymphocytes % (A) 22 %; MCH 31.4 pg (25.0-35.0); MCHC 34.1 g/dL (31.0-37.0); Monocytes # (A) 0.5 k/uL (0-1.0); Monocytes % (A) 4 %; Neutrophils # (A) 7.4 k/uL (1.3-7.7); Neutrophils % (A) 70 %; Platelet Count 240 k/uL (150-450); RBC 4.81 m/uL (3.80-5.40); RDW 13.1 % (11.5-15.5); WBC 10.7 k/uL (3.8-10.6)
[2017-11-22] MEDS ORDERED: diphenhydrAMINE 50 MG/ML 1 ML VIAL IVP STA (16:07)
[2017-11-22] MEDS ORDERED: ACETAMINOPHEN TAB 500 MG TAB PO STA (16:07)
[2017-11-22] MEDS ORDERED: METOCLOPRAMIDE 5 MG/ML 2 ML VIAL IVP STA (16:07)
[2017-11-22 16:08] LABS: ALT 12 U/L (9-52); AST 49 U/L (14-36); Albumin 4.2 g/dL (3.5-5.0); Alkaline Phosphatase 46 U/L (38-126); Anion Gap 7 mmol/L; Blood Urea Nitrogen 7 mg/dL (7-17); Calcium 9.5 mg/dL (8.4-10.2); Carbon Dioxide 19 mmol/L (22-30); Chloride 107 mmol/L (98-107); Glucose 73 mg/dL (74-99); Potassium 5.7 mmol/L (3.5-5.1); Sodium 133 mmol/L (137-145); Total Bilirubin 1.1 mg/dL (0.2-1.3); Total Protein 7.5 g/dL (6.3-8.2); Uric Acid 2.2 mg/dL (3.7-7.4)
--- NOTE | 2017-11-22 16:30 | ED ---
Headache HPI - General Chief Complaint: Headache Stated Complaint: headache Time Seen by Provider: 11/22/17 15:25 Source: RN notes reviewed, old records reviewed Mode of arrival: ambulatory Limitations: no limitations - History of Present Illness Initial Comments: This is a 32 year old female, currently 12 weeks presents with headache for one week. Patient is a patient. Patient has no history of migraine. Patient reports she has taken tylenol and had no relief. Patient denies any other complaints. She denies abdominal pain, vaginal bleeding. - Related Data Home Medications Medication Instructions Recorded Confirmed Pnv No.95/Ferrous Fum/Folic AC 1 tab PO DAILY 10/16/17 11/22/17 [ Multivitamin Tablet] Allergies Allergy/AdvReac Type Severity Reaction Status Date / Time No Known Allergies Allergy Verified 11/22/17 16:13 Review of Systems ROS Statement: Those systems with pertinent positive or pertinent negative responses have been documented in the HPI. ROS Other: All systems not noted in ROS Statement are negative. Past Medical History Past Medical History: GERD/Reflux, Hyperlipidemia Additional Past Medical History / Comment(s): 03/03/15 Pt presented to [facility] ER with L sided chest pain which started today while at work here at [facility]. Pain is constant and sharp and is stabbing. Pain rediated thru toher back and she had diaphoresis and vomited. Pt being admitted with clinical impression of chest pain, unstable angina pectoris. Other HX: Pt states she has high lipids but not on medication. History of Any Multi-Drug Resistant Organisms: None Reported Past Surgical History: No Surgical Hx Reported, Back Surgery, Cholecystectomy Additional Past Surgical History / Comment(s): 06/24/14 laminectomy and decompression L5-S1 and discectomy for decompression L5-S1, 05/06/14 EGD and colonoscopy with bxs which were negative. Additional Past Anesthesia/Blood Transfusion Reaction / Comment(s): Pt states she had a severe headach post op day 1. Past Psychological History: Anxiety Smoking Status: Current every day smoker Past Alcohol Use History: Rare Past Drug Use History: None Reported - Past Family History Mother Family Medical History: Cancer Father Family Medical History: Coronary Artery Disease (CAD), Myocardial Infarction ([place] ) General Exam - General Exam Comments Initial Comments: This is a 32 year old female, well appearing. Limitations: no limitations General appearance: alert, in no apparent distress Head exam: Present: atraumatic, normocephalic, normal inspection Eye exam: Present: normal appearance, PERRL, EOMI. Absent: scleral icterus, conjunctival injection, periorbital swelling ENT exam: Present: normal exam, mucous membranes moist Neck exam: Present: normal inspection. Absent: tenderness, meningismus, lymphadenopathy Respiratory exam: Present: normal lung sounds bilaterally. Absent: respiratory distress, wheezes, rales, rhonchi, stridor Cardiovascular Exam: Present: regular rate, normal rhythm, normal heart sounds. Absent: systolic murmur, diastolic murmur, rubs, gallop, clicks GI/Abdominal exam: Present: soft, normal bowel sounds. Absent: distended, tenderness, guarding, rebound, rigid Extremities exam: Present: normal inspection, full ROM, normal capillary refill. Absent: tenderness, pedal edema, joint swelling, calf tenderness Back exam: Present: normal inspection Neurological exam: Present: alert, oriented X3, CN II-XII intact Psychiatric exam: Present: normal affect, normal mood Skin exam: Present: warm, dry, intact, normal color. Absent: rash Course Vital Signs 11/22/17 11/22/17 11/22/17 14:10 16:10 18:13 Temperature 98.2 F 97.8 F Pulse Rate 86 77 68 Respiratory 16 18 16 Rate Blood Pressure 117/79 113/70 115/69 O2 Sat by Pulse 99 98 99 Oximetry Medical Decision Making - Medical Decision Making Patient is a 32 year old female, presents today with headache. Patient is 12 weeks , . Denies abdominal pain or vaginal bleeding. Patient was given IV fluids, tylenol, and benadryl. She reports her headache is diminishing. Labs were reviewed, initial potassium was elevated. Recheck shows normal potassium, likely due to hemolysis. heart tones were 140-160. Patient has no vaginal bleeding. No abdominal pain or tenderness. Vitals are stable, normal neurologic exam. Discussed she also needs to have frequent snacking, BG was 76 at draw. Discussed PCP and OB follow up, return parameters discussed. - Lab Data Result diagrams: 11/22/17 15:47 11/22/17 17:20 Lab Results 11/22/17 11/22/17 11/22/17 Range/Units 15:47 15:47 16:27 WBC 10.7 H (3.8-10.6) k/uL RBC 4.81 (3.80-5.40) m/uL Hgb 15.1 (11.4-16.0) gm/dL Hct 44.3 (34.0-46.0) % MCV 92.0 (80.0-100.0) fL MCH 31.4 (25.0-35.0) pg MCHC 34.1 (31.0-37.0) g/dL RDW 13.1 (11.5-15.5) % Plt Count 240 (150-450) k/uL Neutrophils % 70 % Lymphocytes % 22 % Monocytes % 4 % Eosinophils % 2 % Basophils % 1 % Neutrophils # 7.4 (1.3-7.7) k/uL Lymphocytes # 2.4 (1.0-4.8) k/uL Monocytes # 0.5 (0-1.0) k/uL Eosinophils # 0.2 (0-0.7) k/uL Basophils # 0.1 (0-0.2) k/uL Sodium 133 L (137-145) mmol/L Potassium 5.7 H (3.5-5.1) mmol/L Chloride 107 (98-107) mmol/L Carbon Dioxide 19 L (22-30) mmol/L Anion Gap 7 mmol/L BUN 7 (7-17) mg/dL Creatinine 0.30 L (0.52-1.04) mg/dL Est GFR (CKD-EPI)AfAm >90 (>60 ml/min/1.73 sqM) Est GFR (CKD-EPI)NonAf >90 (>60 ml/min/1.73 sqM) Glucose 73 L (74-99) mg/dL Uric Acid 2.2 L (3.7-7.4) mg/dL Calcium 9.5 (8.4-10.2) mg/dL Total Bilirubin 1.1 (0.2-1.3) mg/dL AST 49 H (14-36) U/L ALT 12 (9-52) U/L Alkaline Phosphatase 46 (38-126) U/L Total Protein 7.5 (6.3-8.2) g/dL Albumin 4.2 (3.5-5.0) g/dL Urine Color Light Yellow Urine Appearance Clear (Clear) Urine pH 5.5 (5.0-8.0) Ur Specific [place] 1.010 (1.001-1.035) Urine Protein Negative (Negative) Urine Glucose (UA) Negative (Negative) Urine Ketones Negative (Negative) Urine Blood Negative (Negative) Urine Nitrite Negative (Negative) Urine Bilirubin Negative (Negative) Urine Urobilinogen <2.0 (<2.0) mg/dL Ur Leukocyte Esterase Negative (Negative) 11/22/17 Range/Units 17:20 WBC (3.8-10.6) k/uL RBC (3.80-5.40) m/uL Hgb (11.4-16.0) gm/dL Hct (34.0-46.0) % MCV (80.0-100.0) fL MCH (25.0-35.0) pg MCHC (31.0-37.0) g/dL RDW (11.5-15.5) % Plt Count (150-450) k/uL Neutrophils % % Lymphocytes % % Monocytes % % Eosinophils % % Basophils % % Neutrophils # (1.3-7.7) k/uL Lymphocytes # (1.0-4.8) k/uL Monocytes # (0-1.0) k/uL Eosinophils # (0-0.7) k/uL Basophils # (0-0.2) k/uL Sodium (137-145) mmol/L Potassium 3.6 (3.5-5.1) mmol/L Chloride (98-107) mmol/L Carbon Dioxide (22-30) mmol/L Anion Gap mmol/L BUN (7-17) mg/dL Creatinine (0.52-1.04) mg/dL Est GFR (CKD-EPI)AfAm (>60 ml/min/1.73 sqM) Est GFR (CKD-EPI)NonAf (>60 ml/min/1.73 sqM) Glucose (74-99) mg/dL Uric Acid (3.7-7.4) mg/dL Calcium (8.4-10.2) mg/dL Total Bilirubin (0.2-1.3) mg/dL AST (14-36) U/L ALT (9-52) U/L Alkaline Phosphatase (38-126) U/L Total Protein (6.3-8.2) g/dL Albumin (3.5-5.0) g/dL Urine Color Urine Appearance (Clear) Urine pH (5.0-8.0) Ur Specific [place] (1.001-1.035) Urine Protein (Negative) Urine Glucose (UA) (Negative) Urine Ketones (Negative) Urine Blood (Negative) Urine Nitrite (Negative) Urine Bilirubin (Negative) Urine Urobilinogen (<2.0) mg/dL Ur Leukocyte Esterase (Negative) Disposition Clinical Impression: Headache, Disposition: HOME SELF-CARE Condition: Good Instructions: Acute Headache (ED) Additional Instructions: Patient has a follow-up with primary care physician. Return to the emergency department if any alarming signs or symptoms occur. Is patient prescribed a controlled substance at d/c from ED?: No Referrals: Bret Parker MD [Primary Care Provider] - 1-2 days Time of Disposition: 17:40
[2017-11-22 16:35] LABS: Appearance,Urine Clear (Clear); Bilirubin,Urine Negative (Negative); Blood,Urine Negative (Negative); Color,Urine Light Yellow; Glucose,Urine (UA) Negative (Negative); Ketones,Urine Negative (Negative); Leukocyte Esterase,Urine Negative (Negative); Nitrite,Urine Negative (Negative); PH, Urine 5.5 (5.0-8.0); Protein,Urine Negative (Negative); Urobilinogen,Urine <2.0 mg/dL (<2.0)
[2017-11-22 18:14] VITALS: BP 115/69; PULSE 68; RESP 16; TEMP 97.8
== END 2017-11-22 18:13 | disposition home or self-care (01) ==
LOC: EC 13:49
DX: O99.89 Other specified diseases and conditions complicating pregnancy, childbirth and the puerperium (principal); R51 Headache; O99.331 Smoking (tobacco) complicating pregnancy, first trimester; F17.200 Nicotine dependence, unspecified, uncomplicated; Z3A.13 13 weeks gestation of pregnancy
CPT/HCPCS: 36415; 80053; 84132; 84550; 85025; 81003; 99284; 96374; 96375; 96361 ×2; J1200; J2765

== ENCOUNTER 2018-01-12 18:26 | Outpatient (CLI) | payer OTHER ==
[2018-01-12 19:29] VITALS: BP 115/74; PULSE 93; RESP 16; TEMP 98.2
--- NOTE | 2018-01-13 11:09 | P.MSEPDOC ---
Presenting Problems - Arrival Data Date of Arrival on Unit: 01/12/18 Time of Arrival on Unit: 18:26 Mode of Transport: Wheelchair - Complaint OB-Reason for Admission/Chief Complaint: Vaginal Bleeding Comment: c/o bright red bleeding after sexual intercourse. Medical History - Information : 1 Para: 0 Term: 0 : 0 Abortions: Spontaneous or Elective: 0 Number of Living Children: 0 - Gestational Age Gestational Age by RACHEL (wks/days): 20 Weeks and 4 Days Review of Systems - Review of Systems Constitutional: No problems Breast: No problems ENT: No problems Cardiovascular: No problems Respiratory: No problems Gastrointestinal: No problems Genitourinary: No problems Musculoskeletal: No problems Neurological: No problems Skin: No problems Vital Signs - Temperature Temperature: 98.2 F Temperature Source: Temporal Artery Scan - Pulse Right Pulse Rate: 93 Pulse Assessment Method: Pulse Oximetry - Respirations Respiratory Rate: 16 Oxygen Delivery Method: Room Air O2 Sat by Pulse Oximetry: 97 - Blood Pressure Right Arm Blood Pressure: 115/74 Blood Pressure Mean: 87 Blood Pressure Source: Automatic Cuff Medical Screen Scoring (Pre) - Cervical Exam Dilation: 0 cm = 0 Effacement: Exam Deferred Membranes: Intact - Uterine Contractions Frequency: N/A Duration: N/A Intensity: N/A - Maternal Vital Signs Maternal Temperature: N/A Maternal Blood Pressure: N/A Signs of Preeclampsia: N/A Maternal Respirations: N/A - Pain Assessment Pain Location and Character: Generalized Pain Intensity: 0 Pain Management Goal: 0 Pain Behavior: None Exhibited, Vocalization - Maternal Trauma Maternal Trauma: N/A - Total Score Total Score (Pre): 0 - Level of Risk Level of Risk: Low (0-5) Physician Notification (Pre) - Physician Notified Physician Notified Date: 01/12/18 Physician Notified Time: 18:55 Physician/Practitioner Notifed:: Dr. Jean Spoke With: Dr. Jean New Order Received: Yes (spec and cervical exam. If closed d/c with instructions.) - Notification Comment Comment: FHT noted via doppler. Ranging from 135-150 over 2 minutes. Disposition - Disposition OB Disposition: Discharge to home Discharge Date: 01/12/18 Discharge Time: 19:11 I agree with the RN Medical Screening Exam: Yes Risk & Benefit of care provided described in d/c instruction: Yes Diagnosis: SPOTTING COMPLICATING , SECOND TRIMESTER
== END 2018-01-12 19:11 | disposition home or self-care (01) ==
LOC: FBPOP 18:26
PROVIDERS: ATTEND Obstetrics & Gynecology
DX: O26.852 Spotting complicating pregnancy, second trimester (principal); Z3A.20 20 weeks gestation of pregnancy
CPT/HCPCS: 99213

== ENCOUNTER → 2018-01-15 | Outpatient (CLI) | payer OTHER ==
[2018-01-15 01:08] VITALS: BP 119/67; PULSE 102; RESP 18; TEMP 98.1
--- NOTE | 2018-01-15 01:58 | US ---
EXAMINATION TYPE: US OB >= 14 wk fetus DATE OF EXAM: 01/15/2018 COMPARISON: None CLINICAL HISTORY: bleedingSpotting TECHNIQUE: Transabdominal (TA) GESTATIONAL AGE / DATING Physician Established: (21 weeks/0 days) EDC: 05/28/2018 Dates by LMP: (21 weeks/0 days) EDC: 05/28/2018 Dates by First Scan: ( 8 weeks/0 days) EDC: 05/28/2018 Dates by Current Scan: (20 weeks/1 days) EDC: 06/03/2018 SURVEY IUP: Single PLACENTA: Anterior PREVIA: No Previa ZACH: 13.75 cm Normal CERVICAL LENGTH (transabdominal: norm > 3.0cm): 3.7 cm BIOMETRY PRESENTATION: Breech LIE: Transverse with head maternal rt. BPD: 4.94 cm 21 weeks / 0 days HC: 17.12 cm 19 weeks / 5 days AC: 15.54 cm 20 weeks / 5 days FL: 3.34 cm 20 weeks / 3 days ESTIMATED WEIGHT IN GRAMS: 359.43 grams ESTIMATED WEIGHT IN LBS/OZ: 0 lbs. 13 oz. WEIGHT PERCENTAGE BASED ON ESTABLISHED DATES: 21.8% HC/AC: 1.1cm Normal FL/AC: 67.59cm Normal HEART RATE: 171 bpm RHYTHM: Normal Viable IUP 20w1d HR 171 BPM IMPRESSION: There is satisfactory growth compared to 10/16/2017. No complicating process seen.
--- NOTE | 2018-01-15 13:02 | P.MSEPDOC ---
Presenting Problems - Arrival Data Date of Arrival on Unit: 01/15/18 Time of Arrival on Unit: 00:14 Mode of Transport: Portable - Complaint OB-Reason for Admission/Chief Complaint: Vaginal Bleeding Comment: old blood when wiping, intercourse 2 days ago Medical History - Information : 1 Para: 0 Term: 0 : 0 Abortions: Spontaneous or Elective: 0 Number of Living Children: 0 - Gestational Age Gestational Age by RACHEL (wks/days): 21 Weeks and 2 Days - History Complications: Smoker Review of Systems - Review of Systems Constitutional: No problems Breast: No problems ENT: No problems Cardiovascular: No problems Respiratory: No problems Gastrointestinal: No problems Genitourinary: No problems Musculoskeletal: No problems Neurological: No problems Skin: No problems Comment: states she had a panic attack earlier in the day with difficulty breathing, completely resolved at this time, no difficulty breathing Vital Signs - Temperature Temperature: 98.1 F Temperature Source: Temporal Artery Scan - Pulse Right Supine Brachial Pulse Rate: 102 Pulse Assessment Method: Automatic Cuff - Respirations Respiratory Rate: 18 Oxygen Delivery Method: Room Air O2 Sat by Pulse Oximetry: 96 - Blood Pressure Right Arm Supine Blood Pressure: 119/67 Blood Pressure Mean: 84 Blood Pressure Source: Automatic Cuff Medical Screen Scoring (Pre) - Cervical Exam Dilation: Exam Deferred Effacement: Exam Deferred - Uterine Contractions Frequency: N/A Duration: N/A Intensity: N/A - Maternal Vital Signs Signs of Preeclampsia: N/A Maternal Respirations: N/A - Pain Assessment Pain Behavior: None Exhibited - Maternal Trauma Maternal Trauma: N/A - Assessment Baseline FHR: 150 - Total Score Total Score (Pre): 0 - Level of Risk Level of Risk: Low (0-5) Physician Notification (Pre) - Physician Notified Physician Notified Date: 01/15/18 Physician Notified Time: 00:45 Physician/Practitioner Notifed:: Dr Turner Spoke With: Dr Turner New Order Received: Yes - Notification Comment Comment: OB ultrasound Disposition - Disposition OB Disposition: Triage I agree with the RN Medical Screening Exam: Yes Risk & Benefit of care provided described in d/c instruction: Yes Diagnosis: RELATED CONDITIONS, UNSPECIFIED, SECOND TRIMESTER
== END | disposition home or self-care (01) ==
LOC: FBPOP 00:10
PROVIDERS: ATTEND Obstetrics & Gynecology
DX: O26.92 Pregnancy related conditions, unspecified, second trimester (principal); Z3A.21 21 weeks gestation of pregnancy
CPT/HCPCS: 76805; G0463; 99215

== ENCOUNTER → 2018-02-28 | Outpatient (CLI) | payer OTHER ==
[2018-02-28 12:35] LABS: Glucose 3 Hour, Gest 131 mg/dL
== END | disposition home or self-care (01) ==
LOC: LABWHC1 08:27
PROVIDERS: ATTEND Obstetrics & Gynecology
DX: O99.810 Abnormal glucose complicating pregnancy (principal); Z3A.00 Weeks of gestation of pregnancy not specified
CPT/HCPCS: 36415; 82951; 82952

== ENCOUNTER 2018-03-02 18:16 | Emergency (ER) | payer OTHER ==
[2018-03-02 18:25] VITALS: RESP 18
--- NOTE | 2018-03-02 19:22 | ED ---
General Adult HPI - General Chief complaint: Chest Pain Stated complaint: chest pain Source: patient, family, RN notes reviewed, old records reviewed Mode of arrival: wheelchair - History of Present Illness Initial comments: 32-year-old female patient who is 28 weeks gestation presents to ED with left lateral chest pain. Patient states this pain began this morning approximately 8 :00. Patient is to the pain is longer nipple line on her left lateral anterior axillary line. Patient states that this pain is reproducible upon palpation. Patient states that the pain improves with exertion, is worse by rest. Patient states this pain feels stabbing, dull pain. Patient not have any personal history of cardiac disease. She denies any personal history of embolus, DVT. Patient denies anterior chest pain, shortness of breath, pleuritic chest pain, nausea vomiting diarrhea, diaphoresis. Systemic: Pt denies fatigue, myalgia, fever/chills, rash. Pt denies weakness, night sweats, weight loss. Neuro: Pt denies headache, visual disturbances, syncope or pre-syncope. HEENT: Pt denies ocular discharge or irritation, otalgia, rhinorrhea, pharyngitis or notable lymphadenopathy. Cardiopulmonary: Pt denies chest pain, SOB, heart palpitations, dyspnea on exertion. Abdominal/GI: Pt denies abdominal pain, n/v/d. : Pt denies dysuria, burning w/ urination, frequency/urgency. Denies new onset urinary or bowel incontinence. MSK: Pt denies myalgia, loss of strength or function in extremities. Neuro: Pt denies new onset weakness, paresthesias. - Related Data Home Medications Medication Instructions Recorded Confirmed Pnv No.95/Ferrous Fum/Folic AC 1 tab PO DAILY 10/16/17 03/02/18 [ Multivitamin Tablet] Allergies Allergy/AdvReac Type Severity Reaction Status Date / Time No Known Allergies Allergy Verified 01/15/18 00:21 Review of Systems ROS Statement: Those systems with pertinent positive or pertinent negative responses have been documented in the HPI. ROS Other: All systems not noted in ROS Statement are negative. Past Medical History Past Medical History: GERD/Reflux, Hyperlipidemia Additional Past Medical History / Comment(s): 03/03/15 Pt presented to [facility] ER with L sided chest pain which started today while at work here at [facility]. Pain is constant and sharp and is stabbing. Pain rediated thru toher back and she had diaphoresis and vomited. Pt being admitted with clinical impression of chest pain, unstable angina pectoris. Other HX: Pt states she has high lipids but not on medication. History of Any Multi-Drug Resistant Organisms: None Reported Past Surgical History: No Surgical Hx Reported, Back Surgery, Cholecystectomy Additional Past Surgical History / Comment(s): 06/24/14 laminectomy and decompression L5-S1 and discectomy for decompression L5-S1, 05/06/14 EGD and colonoscopy with bxs which were negative. Additional Past Anesthesia/Blood Transfusion Reaction / Comment(s): Pt states she had a severe headach post op day 1. Past Psychological History: No Psychological Hx Reported Smoking Status: Current every day smoker Past Alcohol Use History: None Reported Past Drug Use History: None Reported - Past Family History Mother Family Medical History: Cancer Father Family Medical History: Coronary Artery Disease (CAD), Myocardial Infarction ([place] ) General Exam - General Exam Comments Initial Comments: Constitutional: NAD, AOX3, Pt has pleasant affect. HEENT: NC/AT, trachea midline, neck supple, no lymphadenopathy. Posterior pharynx non erythematous, without exudates. External ears appear normal, without discharge. Mucous membranes moist. Eyes PERRLA, EOM intact. There is no scleral icterus. No pallor noted. Cardiopulmonary: RRR, no murmurs, rubs or gallops, no JVD noted. Lungs CTAB in anterior and posterior hurst. No peripheral edema. Lateral chest pain reproducible upon palpation. Abdominal exam: Abdomen soft and non-distended. Abdomen non-tender to palpation in all 4 quadrants. Bowel sounds active in LLQ. No hepatosplenomegaly. No ecchymosis Neuro: CN II-XII grossly. No nuchal rigidity. MSK: No posterior calf tenderness bilaterally, homans sign negative bilaterally. Posterior tibialis and radial pulse +2 bilaterally. Course Vital Signs 03/02/18 03/02/18 03/02/18 18:20 19:30 20:31 Temperature 97.8 F 97.9 F Pulse Rate 86 79 Respiratory 18 18 18 Rate Blood Pressure 113/78 110/75 O2 Sat by Pulse 98 97 Oximetry Medical Decision Making - Medical Decision Making 32-year-old patient 28 weeks gestation presents to ED with left sided rib pain. Patient stated pain began this morning, denies any falls or trauma. Patient states that the pain is not worse with exertion, rather worse while sitting down , not exertion. Physical exam revealed this pain to be reproducible upon palpation. Physical exam is otherwise benign, no acute pathologic findings noted. Patient is perc negative. Laboratory investigation does not reveal acute pathology. CBC, CMP, coags, troponin, UA were all negative. EKG is not concerning for acute pathology or ischemia. Patient denied chest x-ray. The on- call [employer] was contacted, Dr. Temple. Dr. Temple recommend discharge, patient to be evaluated by OB triage at [facility]. Patient to follow up with PCP in 1-2 days, patient to follow up with OB triage tonight. Patient to return to ED if any new signs or symptoms develop including chest pain, shortness breath, exertional dyspnea, pleuritic chest pain, any other new symptoms. Case discussed at [facility] with dr. parker. - Lab Data Result diagrams: 03/02/18 18:55 03/02/18 18:55 Lab Results 03/02/18 03/02/18 03/02/18 Range/Units 18:55 18:55 18:55 WBC 10.9 H (3.8-10.6) k/uL RBC 4.20 (3.80-5.40) m/uL Hgb 13.4 (11.4-16.0) gm/dL Hct 39.3 (34.0-46.0) % MCV 93.5 (80.0-100.0) fL MCH 31.8 (25.0-35.0) pg MCHC 34.1 (31.0-37.0) g/dL RDW 12.8 (11.5-15.5) % Plt Count 202 (150-450) k/uL Neutrophils % 71 % Lymphocytes % 20 % Monocytes % 5 % Eosinophils % 1 % Basophils % 1 % Neutrophils # 7.7 (1.3-7.7) k/uL Lymphocytes # 2.2 (1.0-4.8) k/uL Monocytes # 0.6 (0-1.0) k/uL Eosinophils # 0.2 (0-0.7) k/uL Basophils # 0.1 (0-0.2) k/uL PT (9.0-12.0) sec INR (<1.2) APTT (22.0-30.0) sec Sodium 139 (137-145) mmol/L Potassium 3.6 (3.5-5.1) mmol/L Chloride 109 H (98-107) mmol/L Carbon Dioxide 23 (22-30) mmol/L Anion Gap 7 mmol/L BUN 4 L (7-17) mg/dL Creatinine 0.31 L (0.52-1.04) mg/dL Est GFR (CKD-EPI)AfAm >90 (>60 ml/min/1.73 sqM) Est GFR (CKD-EPI)NonAf >90 (>60 ml/min/1.73 sqM) Glucose 84 (74-99) mg/dL Calcium 9.2 (8.4-10.2) mg/dL Magnesium 1.6 (1.6-2.3) mg/dL Total Bilirubin 0.4 (0.2-1.3) mg/dL AST 23 (14-36) U/L ALT 27 (9-52) U/L Alkaline Phosphatase 67 (38-126) U/L Troponin I (0.000-0.034) ng/mL NT-Pro-B Natriuret Pep 40 pg/mL Total Protein 6.0 L (6.3-8.2) g/dL Albumin 3.1 L (3.5-5.0) g/dL Urine Color Urine Appearance (Clear) Urine pH (5.0-8.0) Ur Specific Ralston (1.001-1.035) Urine Protein (Negative) Urine Glucose (UA) (Negative) Urine Ketones (Negative) Urine Blood (Negative) Urine Nitrite (Negative) Urine Bilirubin (Negative) Urine Urobilinogen (<2.0) mg/dL Ur Leukocyte Esterase (Negative) Urine WBC (0-5) /hpf Ur Squamous Epith Cells (0-4) /hpf Urine Bacteria (None) /hpf Urine Mucus (None) /hpf 03/02/18 03/02/18 03/02/18 Range/Units 18:55 18:55 19:20 WBC (3.8-10.6) k/uL RBC (3.80-5.40) m/uL Hgb (11.4-16.0) gm/dL Hct (34.0-46.0) % MCV (80.0-100.0) fL MCH (25.0-35.0) pg MCHC (31.0-37.0) g/dL RDW (11.5-15.5) % Plt Count (150-450) k/uL Neutrophils % % Lymphocytes % % Monocytes % % Eosinophils % % Basophils % % Neutrophils # (1.3-7.7) k/uL Lymphocytes # (1.0-4.8) k/uL Monocytes # (0-1.0) k/uL Eosinophils # (0-0.7) k/uL Basophils # (0-0.2) k/uL PT 10.0 (9.0-12.0) sec INR 0.9 (<1.2) APTT 24.0 (22.0-30.0) sec Sodium (137-145) mmol/L Potassium (3.5-5.1) mmol/L Chloride (98-107) mmol/L Carbon Dioxide (22-30) mmol/L Anion Gap mmol/L BUN (7-17) mg/dL Creatinine (0.52-1.04) mg/dL Est GFR (CKD-EPI)AfAm (>60 ml/min/1.73 sqM) Est GFR (CKD-EPI)NonAf (>60 ml/min/1.73 sqM) Glucose (74-99) mg/dL Calcium (8.4-10.2) mg/dL Magnesium (1.6-2.3) mg/dL Total Bilirubin (0.2-1.3) mg/dL AST (14-36) U/L ALT (9-52) U/L Alkaline Phosphatase (38-126) U/L Troponin I <0.012 (0.000-0.034) ng/mL NT-Pro-B Natriuret Pep pg/mL Total Protein (6.3-8.2) g/dL Albumin (3.5-5.0) g/dL Urine Color Yellow Urine Appearance Cloudy H (Clear) Urine pH 6.5 (5.0-8.0) Ur Specific Ralston 1.012 (1.001-1.035) Urine Protein Negative (Negative) Urine Glucose (UA) Negative (Negative) Urine Ketones Negative (Negative) Urine Blood Negative (Negative) Urine Nitrite Negative (Negative) Urine Bilirubin Negative (Negative) Urine Urobilinogen <2.0 (<2.0) mg/dL Ur Leukocyte Esterase Negative (Negative) Urine WBC 2 (0-5) /hpf Ur Squamous Epith Cells <1 (0-4) /hpf Urine Bacteria Rare H (None) /hpf Urine Mucus Rare H (None) /hpf Disposition Clinical Impression: Atypical chest pain, Rib pain Disposition: HOME SELF-CARE Condition: Good Instructions: (ED) Additional Instructions: Patient to adhere to previously discussed treatment plan and will take medication(s) as directed. Patient to follow up with PCP in 1-2 days. Patient to return to ED if symptoms do not improve. Is patient prescribed a controlled substance at d/c from ED?: No Referrals: None,Stated [Primary Care Provider] - 1-2 days John Temple MD [STAFF PHYSICIAN] - 1-2 days
[2018-03-02 19:29] LABS: Basophils # (A) 0.1 k/uL (0-0.2); Basophils % (A) 1 %; Eosinophils # (A) 0.2 k/uL (0-0.7); Eosinophils % (A) 1 %; HCT 39.3 % (34.0-46.0); HGB 13.4 gm/dL (11.4-16.0); Lymphocytes # (A) 2.2 k/uL (1.0-4.8); Lymphocytes % (A) 20 %; MCH 31.8 pg (25.0-35.0); MCHC 34.1 g/dL (31.0-37.0); MCV 93.5 fL (80.0-100.0); Monocytes # (A) 0.6 k/uL (0-1.0); Monocytes % (A) 5 %; Neutrophils # (A) 7.7 k/uL (1.3-7.7); Neutrophils % (A) 71 %; Platelet Count 202 k/uL (150-450); RDW 12.8 % (11.5-15.5); WBC 10.9 k/uL (3.8-10.6)
[2018-03-02 19:45] LABS: ALT 27 U/L (9-52); AST 23 U/L (14-36); Albumin 3.1 g/dL (3.5-5.0); Alkaline Phosphatase 67 U/L (38-126); Anion Gap 7 mmol/L; Blood Urea Nitrogen 4 mg/dL (7-17); Calcium 9.2 mg/dL (8.4-10.2); Carbon Dioxide 23 mmol/L (22-30); Chloride 109 mmol/L (98-107); Glucose 84 mg/dL (74-99); Magnesium 1.6 mg/dL (1.6-2.3); Potassium 3.6 mmol/L (3.5-5.1); Sodium 139 mmol/L (137-145); Total Bilirubin 0.4 mg/dL (0.2-1.3)
[2018-03-02 19:46] LABS: INR 0.9 (<1.2)
[2018-03-02 19:51] LABS: Appearance,Urine Cloudy (Clear); Bacteria,Urine Rare /hpf; Bilirubin,Urine Negative (Negative); Blood,Urine Negative (Negative); Color,Urine Yellow; Glucose,Urine (UA) Negative (Negative); Ketones,Urine Negative (Negative); Leukocyte Esterase,Urine Negative (Negative); Mucus,Urine Rare /hpf; Nitrite,Urine Negative (Negative); PH, Urine 6.5 (5.0-8.0); Protein,Urine Negative (Negative); Specific Gravity,Urine 1.012 (1.001-1.035); Squamous Epithelial Cell,Urine <1 /hpf (0-4); Urobilinogen,Urine <2.0 mg/dL (<2.0)
[2018-03-02 20:32] VITALS: BP 110/75; PULSE 79; TEMP 97.9
== END 2018-03-02 20:57 | disposition home or self-care (01) ==
LOC: EC 18:16
DX: O99.89 Other specified diseases and conditions complicating pregnancy, childbirth and the puerperium (principal); R07.89 Other chest pain; O99.613 Diseases of the digestive system complicating pregnancy, third trimester; K21.9 Gastro-esophageal reflux disease without esophagitis; O99.333 Smoking (tobacco) complicating pregnancy, third trimester; F17.200 Nicotine dependence, unspecified, uncomplicated; Z82.49 Family history of ischemic heart disease and other diseases of the circulatory system; Z3A.28 28 weeks gestation of pregnancy
CPT/HCPCS: 36415; 80053; 81001; 83735; 83880; 84484; 85025; 85610; 85730; 93005; 99285

== ENCOUNTER 2018-03-02 21:05 | Outpatient (CLI) | payer OTHER ==
[2018-03-02 21:44] VITALS: BP 122/74; PULSE 74; RESP 16; TEMP 96.8
--- NOTE | 2018-03-03 09:49 | P.MSEPDOC ---
Presenting Problems - Arrival Data Date of Arrival on Unit: 03/02/18 Time of Arrival on Unit: 21:05 Mode of Transport: Ambulatory - Complaint OB-Reason for Admission/Chief Complaint: Observation/Evaluation Medical History - Information : 1 Para: 0 Term: 0 : 0 Abortions: Spontaneous or Elective: 0 Number of Living Children: 0 - Gestational Age Gestational Age by RACHEL (wks/days): 27 Weeks and 4 Days - History Complications: Smoker Review of Systems - Review of Systems Constitutional: No problems Breast: No problems ENT: No problems Cardiovascular: No problems Respiratory: No problems Gastrointestinal: No problems Genitourinary: No problems Musculoskeletal: No problems Neurological: No problems Skin: No problems Vital Signs - Temperature Temperature: 96.8 F Temperature Source: Temporal Artery Scan - Pulse Right Brachial Pulse Rate: 74 Pulse Assessment Method: Automatic Cuff - Respirations Respiratory Rate: 16 Oxygen Delivery Method: Room Air O2 Sat by Pulse Oximetry: 98 - Blood Pressure Right Arm Blood Pressure: 122/74 Blood Pressure Mean: 90 Blood Pressure Source: Automatic Cuff Medical Screen Scoring (Pre) - Cervical Exam Dilation: Exam Deferred Effacement: Exam Deferred Membranes: Intact - Uterine Contractions Frequency: > 5 minutes apart = 1 Duration: N/A Intensity: N/A - Maternal Vital Signs Maternal Temperature: N/A Maternal Blood Pressure: N/A Signs of Preeclampsia: N/A Maternal Respirations: N/A - Pain Assessment Pain Location and Character: Left, Upper, Lateral, Chest Pain Scale Used: Numeric (1 - 10) Pain Intensity: 6 Pain Description: *Acute, Stabbing Pain Frequency: Intermittent Pain Duration Units: Minutes Pain Behavior: Vocalization Pain Aggravating Factors: None - Maternal Trauma Maternal Trauma: N/A - Assessment Baseline FHR: 130 Heart Rate - NICHD Category: Category I (Normal) = 0 NST: Reactive Position: N/A Station: N/A - Total Score Total Score (Pre): 1 - Level of Risk Level of Risk: Low (0-5) Physician Notification (Pre) - Physician Notified Physician Notified Date: 03/02/18 Physician Notified Time: 21:07 Physician/Practitioner Notifed:: Dr. Turner Spoke With: Dr. Turner New Order Received: Yes - Notification Comment Comment: Dr. Turner called regarding from ER. Orders recieved to perform modified NST. with 10x10 accelerations present. As long as nst is reactive, pt can be d/c to home. Disposition - Disposition OB Disposition: Discharge to home Discharge Date: 03/02/18 Discharge Time: 21:30 I agree with the RN Medical Screening Exam: Yes Risk & Benefit of care provided described in d/c instruction: Yes Diagnosis: RELATED CONDITIONS, UNSPECIFIED, SECOND TRIMESTER (chest pain cleared thru ER)
== END 2018-03-02 21:30 | disposition home or self-care (01) ==
LOC: FBPOP 21:05
PROVIDERS: ATTEND Obstetrics & Gynecology
DX: O26.92 Pregnancy related conditions, unspecified, second trimester (principal); Z3A.27 27 weeks gestation of pregnancy
CPT/HCPCS: 99213

== ENCOUNTER 2018-03-20 12:20 | Emergency (ER) | payer OTHER ==
[2018-03-20 12:43] VITALS: BP 101/67; PULSE 98; RESP 18; TEMP 97.9
--- NOTE | 2018-03-20 13:31 | ED ---
General Adult HPI - General Chief complaint: Extremity Problem,Nontraumatic Stated complaint: Can't walk, hip pain Source: patient, RN notes reviewed Mode of arrival: wheelchair Limitations: no limitations - History of Present Illness Initial comments: Patient is a 32 year old female who is 7 and a half months with history of back surgery and sciatica who presents to the ER with complaint of right hip pain for the past month that has worsened in the past 3 days. She reports that she has been taking Tylenol for pain, but has not taken anything today. She has seen her bleaching machine operator who sent her to the chiropractor, she has seen the chiropractor 3 times. She was told she could not have any x-rays of her hip by her bleaching machine operator. The pain is worse with weight-bearing and when she is sitting for a while. She reports that she has been using crutches to ambulate. She reports chronic right toe numbness. Denies trauma, fever, chills, bowel or bladder incontinence, saddle anesthesia, tingling, new numbness, chest pain, abdominal pain, headache, visual changes, or any other complaints. - Related Data Home Medications Medication Instructions Recorded Confirmed Pnv No.95/Ferrous Fum/Folic AC 1 tab PO DAILY 10/16/17 03/02/18 [ Multivitamin Tablet] Previous Rx's Medication Instructions Recorded Lidocaine [Lidoderm 5% Patch] 1 patch TRANSDERM DAILY PRN #7 03/20/18 patch Allergies Allergy/AdvReac Type Severity Reaction Status Date / Time No Known Allergies Allergy Verified 03/20/18 12:39 Review of Systems ROS Statement: Those systems with pertinent positive or pertinent negative responses have been documented in the HPI. ROS Other: All systems not noted in ROS Statement are negative. Past Medical History Past Medical History: GERD/Reflux, Hyperlipidemia Additional Past Medical History / Comment(s): 03/03/15 Pt presented to [facility] ER with L sided chest pain which started today while at work here at [facility]. Pain is constant and sharp and is stabbing. Pain rediated thru toher back and she had diaphoresis and vomited. Pt being admitted with clinical impression of chest pain, unstable angina pectoris. Other HX: Pt states she has high lipids but not on medication. History of Any Multi-Drug Resistant Organisms: None Reported Past Surgical History: No Surgical Hx Reported, Back Surgery, Cholecystectomy Additional Past Surgical History / Comment(s): 06/24/14 laminectomy and decompression L5-S1 and discectomy for decompression L5-S1, 05/06/14 EGD and colonoscopy with bxs which were negative. Additional Past Anesthesia/Blood Transfusion Reaction / Comment(s): Pt states she had a severe headach post op day 1. Past Psychological History: No Psychological Hx Reported Smoking Status: Current every day smoker Past Alcohol Use History: None Reported Past Drug Use History: None Reported - Past Family History Mother Family Medical History: Cancer Father Family Medical History: Coronary Artery Disease (CAD), Myocardial Infarction ([place] ) General Exam Limitations: no limitations General appearance: alert, in no apparent distress Head exam: Present: atraumatic, normocephalic Eye exam: Present: normal appearance Respiratory exam: Present: normal lung sounds bilaterally Cardiovascular Exam: Present: regular rate, normal rhythm Extremities exam: Present: normal inspection, full ROM, normal capillary refill , other (DP and PT pulses palpable and strong bilaterally. Strength 5/5 bilateral lower extremities.) Back exam: Present: normal inspection, other (No tenderness to palpation.) Neurological exam: Present: alert, oriented X3, reflexes normal (Patellar.) Psychiatric exam: Present: normal affect, normal mood Skin exam: Present: warm, dry, normal color Course Vital Signs 03/20/18 12:39 Temperature 97.9 F Pulse Rate 98 Respiratory 18 Rate Blood Pressure 101/67 O2 Sat by Pulse 99 Oximetry Medical Decision Making - Medical Decision Making Given Tylenol and Lidocaine patch here for pain. Patient given prescription for lidocaine patch. Case discussed in detail with attending physician Dr. Queen. Disposition Clinical Impression: Sciatica Disposition: HOME SELF-CARE Condition: Good Instructions: Sciatica (ED) Additional Instructions: Follow up with your scrum project manager in 1-2 days. Return to the ER if your symptoms worsen or any other concerns. Prescriptions: Lidocaine [Lidoderm 5% Patch] 1 patch TRANSDERM DAILY PRN #7 patch PRN Reason: Pain Is patient prescribed a controlled substance at d/c from ED?: No Referrals: None,Stated [Primary Care Provider] - 1-2 days Anthony Xie MD [STAFF PHYSICIAN] - 1-2 days
[2018-03-20] MEDS ORDERED: LIDOCAINE 5% PATCH TOPICAL STA (15:46)
[2018-03-20] MEDS ORDERED: ACETAMINOPHEN TAB 500 MG TAB PO STA (16:02)
== END 2018-03-20 16:25 | disposition home or self-care (01) ==
LOC: EC 12:20
DX: O99.89 Other specified diseases and conditions complicating pregnancy, childbirth and the puerperium (principal); M54.31 Sciatica, right side; O99.333 Smoking (tobacco) complicating pregnancy, third trimester; F17.200 Nicotine dependence, unspecified, uncomplicated; Z3A.30 30 weeks gestation of pregnancy
CPT/HCPCS: 99283

== ENCOUNTER 2018-05-11 04:40 | Inpatient (IN) | payer OTHER ==
[2018-05-11 05:38] LABS: Appearance,Urine Clear (Clear); Bilirubin,Urine Negative (Negative); Blood,Urine Negative (Negative); Color,Urine Yellow; Glucose,Urine (UA) Negative (Negative); Ketones,Urine 3+ (Negative); Leukocyte Esterase,Urine Negative (Negative); Nitrite,Urine Negative (Negative); PH, Urine 6.5 (5.0-8.0); Protein,Urine Trace (Negative); Urobilinogen,Urine <2.0 mg/dL (<2.0)
[2018-05-11 05:56] LABS: Basophils % (A) 0 %; Eosinophils # (A) 0.1 k/uL (0-0.7); Eosinophils % (A) 1 %; HCT 41.4 % (34.0-46.0); Lymphocytes # (A) 2.4 k/uL (1.0-4.8); Lymphocytes % (A) 23 %; MCH 31.6 pg (25.0-35.0); MCHC 33.8 g/dL (31.0-37.0); MCV 93.5 fL (80.0-100.0); Mean Platelet Volume 10.4; Monocytes # (A) 0.5 k/uL (0-1.0); Monocytes % (A) 5 %; Neutrophils # (A) 7.4 k/uL (1.3-7.7); Neutrophils % (A) 70 %; Platelet Count 202 k/uL (150-450); RBC 4.42 m/uL (3.80-5.40); RDW 13.4 % (11.5-15.5); WBC 10.5 k/uL (3.8-10.6)
[2018-05-11 06:04] LABS: ALT 33 U/L (9-52); AST 34 U/L (14-36); Blood Urea Nitrogen 5 mg/dL (7-17); LDH 506 U/L (313-618); Uric Acid 5.4 mg/dL (3.7-7.4)
[2018-05-11 06:22] LABS: Large Platelets Present
[2018-05-11] MEDS ORDERED: OXYTOCIN 10 UNIT/ML 1 ML VIAL IM PRN (06:32)
[2018-05-11] MEDS ORDERED: LIDOCAINE 0.5% (PF) 5 MG/ML (50 ML SDV) SQ PRN (06:32)
[2018-05-11] MEDS ORDERED: METHYLERGONOVINE 0.2 MG/ML 1 ML AMP IM PRN (06:32)
[2018-05-11] MEDS ORDERED: TERBUTALINE 1 MG/ML VIAL SQ PRN (06:32)
[2018-05-11] MEDS ORDERED: CARBOPROST TROMETHAMINE 250 MCG/ML 1 ML AMP IM PRN (06:32)
[2018-05-11] MEDS ORDERED: BUTORPHANOL 1 MG/ML 1 ML VIAL IV PRN (06:36)
[2018-05-11] MEDS ORDERED: OXYTOCIN 30 UNITS/500 ML NS 30 UNIT in SALINE 1 500ML.BAG IV SCH (06:45)
[2018-05-11 07:23] VITALS: BMI 29.9
[2018-05-11] MEDS: LACTATED RINGERS 1,000 ML IV SCH ×2 (07:25→13:02)
[2018-05-11 08:10] LABS: INR 0.9 (<1.2); Partial Thromboplastin Time 24.1 sec (22.0-30.0); Prothrombin Time 9.5 sec (9.0-12.0)
[2018-05-11] MEDS ORDERED: fentaNYL (PF) 50 MCG/ML 5 ML AMP ONE (12:10)
[2018-05-11] MEDS ORDERED: SODIUM CHLORIDE 0.9% 100 ML BAG ONE (12:10)
[2018-05-11] MEDS ORDERED: ROPIVACAINE 5MG/ML 20ML VIAL ONE (12:10)
--- NOTE | 2018-05-11 13:00 | P.HPOB ---
History of Present Illness H&P Date: 05/11/18 Chief Complaint: Contractions This is a 32-year-old female 1 para 0 with an estimated date of confinement of 05/28/2018, estimated gestational age of 37-4/7 weeks, who presented to labor and delivery with complaints of contractions. She was showing contractions every 2-6 minutes on the monitor in triage however she did not make cervical change after an hour. Her blood pressures however were elevated several times in the 140s to 150s over 90s. Preeclampsia labs were drawn and all values were normal other than her protein to creatinine ratio was elevated at 0.4. In light of the elevated blood pressures along with the elevated protein, the decision is made to proceed with oxytocin augmentation of labor due to gestational hypertension. She denies any other symptoms of headaches, blurry vision, epigastric pain. Her has been complicated by severe hip pain and back pain to the point that she is using a wheelchair to get around. She has been followed by an orthopedic doctor who has given her cortisone injections on each hip. The last cortisone injection was yesterday. labs: Hepatitis B surface antigen-negative RPR-nonreactive Rubella-immune Blood type-A+ Antibody screen-positive anti-D, but RhoGAM was given prior to that time. HIV-nonreactive Hemoglobin-14.4 Toxoplasma screen-negative Random glucose-80 Obstetrical ultrasound-normal anatomy One hour Glucola-177 Three-hour Glucola-within normal limits Group B streptococcus-negative Obstetrical history: Gynecologic history: No history of sexually transmitted diseases. Social history: She is single. She works as a diagnostics tech. Review of Systems Constitutional: Denies chills, Denies fever Eyes: denies blurred vision, denies pain Ears, nose, mouth and throat: Denies headache, Denies sore throat Cardiovascular: Denies chest pain, Denies shortness of breath Respiratory: Denies cough Gastrointestinal: Reports abdominal pain Genitourinary: Reports pelvic pain (Contractions), Reports Musculoskeletal: Reports low back pain, Reports myalgias Musculoskeletal: bilateral: hip pain Neurological: Reports numbness, Reports weakness Psychiatric: Denies anxiety, Denies depression Past Medical History Past Medical History: GERD/Reflux, Hyperlipidemia Additional Past Medical History / Comment(s): degenerative disc disease History of Any Multi-Drug Resistant Organisms: None Reported Past Surgical History: Back Surgery, Cholecystectomy Additional Past Surgical History / Comment(s): 06/24/14 laminectomy and decompression L5-S1 and discectomy for decompression L5-S1, 05/06/14 EGD and colonoscopy with bxs which were negative. Additional Past Anesthesia/Blood Transfusion Reaction / Comment(s): Pt states she had a severe headach post op day 1. Past Psychological History: No Psychological Hx Reported Additional Psychological History / Comment(s): Pt lives with her boyfriend. Pt is independent. Smoking Status: Current every day smoker Past Alcohol Use History: None Reported Additional Past Alcohol Use History / Comment(s): Pt started smoking at age 13 yrs old and is a ppd to 03/27 ppd smoker. Past Drug Use History: None Reported - Past Family History Mother Family Medical History: Cancer Father Family Medical History: Coronary Artery Disease (CAD), Myocardial Infarction ([place] ) Medications and Allergies Home Medications Medication Instructions Recorded Confirmed Type Pnv No.95/Ferrous Fum/Folic AC 1 tab PO DAILY 10/16/17 05/11/18 History [ Multivitamin Tablet] Allergies Allergy/AdvReac Type Severity Reaction Status Date / Time No Known Allergies Allergy Verified 05/11/18 04:48 Exam Osteopathic Statement: *. No significant issues noted on an osteopathic structural exam other than those noted in the History and Physical/Consult. Vital Signs Temp Pulse Resp BP 05/11/18 07:19 17 05/11/18 06:49 18 143/82 05/11/18 06:13 98.2 F 89 18 143/92 Intake and Output 05/10/18 05/11/18 05/11/18 22:59 06:59 14:59 Other: Weight 70.76 kg HEENT: Within normal limits Heart: Regular rate and rhythm Lungs: Clear to auscultation bilaterally Abdomen: Cervix: 2 cm/80%/-1 station heart tones: Reactive Contractions: Every 2-6 minutes Extremities: Negative Homans Results Result Diagrams: 05/11/18 05:25 05/11/18 05:25 Abnormal Lab Results - Last 24 Hours (Table) 05/11/18 05/11/18 05/11/18 Range/Units 05:22 05:22 05:25 BUN 5 L (7-17) mg/dL Creatinine 0.33 L (0.52-1.04) mg/dL Urine Protein Trace H (Negative) Urine Ketones 3+ H (Negative) U Random Total Protein 44 H (<12) mg/dL Assessment and Plan (1) 37 weeks gestation of Current Visit: Yes Status: Acute Code(s): Z3A.37 - 37 WEEKS GESTATION OF SNOMED Code(s): 41328358 (2) Gestational hypertension Current Visit: Yes Status: Acute Code(s): O13.9 - GESTATIONAL HTN W/O SIGNIFICANT PROTEINURIA, UNSP TRIMESTER SNOMED Code(s): 118503240 Plan: Proceed with oxytocin augmentation of labor due to gestational hypertension. Expectant management. Epidural anesthesia if desired. Will watch blood pressures and only treat if they become severe.
--- NOTE | 2018-05-11 13:03 | P.MSEPDOC ---
Presenting Problems - Arrival Data Date of Arrival on Unit: 05/11/18 Time of Arrival on Unit: 04:40 Mode of Transport: Wheelchair - Complaint OB-Reason for Admission/Chief Complaint: Pain Comment: contractions every 2-4 minutes Medical History - Information : 1 Para: 0 Term: 0 : 0 Abortions: Spontaneous or Elective: 0 Number of Living Children: 0 - Gestational Age Gestational Age by RACHEL (wks/days): 37 Weeks and 4 Days Review of Systems - Review of Systems Constitutional: No problems Breast: No problems ENT: No problems Cardiovascular: No problems Respiratory: No problems Gastrointestinal: No problems Genitourinary: No problems Musculoskeletal: No problems Neurological: No problems Skin: No problems Vital Signs - Temperature Temperature: 98.2 F Temperature Source: Temporal Artery Scan - Pulse Right Brachial Pulse Rate: 89 Pulse Assessment Method: Automatic Cuff - Respirations Respiratory Rate: 17 Oxygen Delivery Method: Room Air - Blood Pressure Right Arm Blood Pressure: 143/82 Blood Pressure Mean: 102 Blood Pressure Source: Automatic Cuff Medical Screen Scoring (Pre) - Cervical Exam Dilation: 1-3 cm = 1 Effacement: More than 50% = 2 Membranes: Intact - Uterine Contractions Frequency: > 5 minutes apart = 1 Duration: N/A Intensity: N/A - Maternal Vital Signs Maternal Temperature: N/A Maternal Blood Pressure: Systolic >139 = 2 Signs of Preeclampsia: N/A Maternal Respirations: N/A - Pain Assessment Pain Location and Character: Abdomen Pain Scale Used: Numeric (1 - 10) Pain Intensity: 5 Pain Description: *Acute, Pressure, Tightness Pain Radiation Location: none Pain Frequency: Intermittent Pain Duration: 2 Pain Duration Units: Hours Pain Behavior: Vocalization Pain Aggravating Factors: Contractions - Maternal Trauma Maternal Trauma: N/A - Assessment Baseline FHR: 120 Heart Rate - NICHD Category: Category I (Normal) = 0 NST: Reactive Position: N/A Station: N/A - Total Score Total Score (Pre): 6 - Level of Risk Level of Risk: Medium (6-9) Physician Notification (Pre) - Physician Notified Physician Notified Date: 05/11/18 Physician Notified Time: 05:12 Physician/Practitioner Notifed:: Dr. Jean Spoke With: Dr. Jean - Notification Comment Comment: obtain PIH labs, recheck cerivx in an hour Medical Screen Scoring (Post) - Cervical Exam Dilation: 1-3 cm = 1 Effacement: More than 50% = 2 Membranes: Intact - Uterine Contractions Frequency: > or = 36 weeks =2 Duration: N/A Intensity: N/A - Maternal Vital Signs Maternal Temperature: N/A Maternal Blood Pressure: Systolic >139 = 2 Signs of Preeclampsia: N/A Maternal Respirations: N/A - Pain Assessment Pain Location and Character: Abdomen Pain Scale Used: Numeric (1 - 10) Pain Description: *Acute, Pressure, Tightness Pain Radiation Location: none Pain Frequency: Intermittent Pain Duration: 2 Pain Duration Units: Hours Pain Behavior: Vocalization Pain Aggravating Factors: Contractions - Maternal Trauma Maternal Trauma: N/A - Assessment Heart Rate: 120 Heart Rate - NICHD Category: Category I (Normal) = 0 NST: Reactive Position: N/A - Total Score Total Score (Post): 7 - Post Treatment Level of Risk Post Treatment Level of Risk: Medium (6-9) Physician Notification (Post) - Physician Notified Physician Notified Date: 05/11/18 Physician Notified Time: 06:27 Physician/Practitioner Notified:: Dr. Jean Spoke With: Dr. Jean New Order Received: Yes - Notification Comment Comment: admit for induction of labor due to elevated bp's Disposition - Disposition OB Disposition: Admit, LDRP Suite I agree with the RN Medical Screening Exam: Yes Risk & Benefit of care provided described in d/c instruction: Yes Diagnosis: GESTATIONAL HTN W/O SIGNIFICANT PROTEINURIA, THIRD TRIMESTER
--- NOTE | 2018-05-11 17:26 | P.PROBDLV ---
Vaginal Delivery Note - . Vaginal Delivery Note: The patient progressed to complete dilation after oxytocin augmentation of labor and artificial rupture of membranes with clear fluid noted. She did receive epidural anesthesia when she was approximate 4 cm and fairly rapidly changed to 8 cm after the epidural. She did have a deceleration during this time and oxytocin was turned off and oxygen was given. Baby did recover and then after. Of time oxytocin was resumed. Once she reached complete dilation, she began pushing. She pushed just over 2 hours and then 's head came to a crown. Perineum was anesthetized and a small midline episiotomy was cut due to maternal exhaustion and heart tones dropping. With one further push, the infant's head delivered across the perineum in a left occiput anterior lie followed by the anterior shoulder and area nose and mouth were bulb suctioned. There was a loop of cord next to the baby's head but not around the neck. The remainder the easily delivered and was placed on mother's abdomen. Cord was clamped and cut and was taken to warmer for evaluation. A viable male is noted with scores of 8 at 1 minute and 9 at 5 minutes and weight of 6 lbs. 2 oz. The placenta delivered shortly thereafter, intact , with a three-vessel cord. A marginal cord insertion was noted. Uterus contracted well after oxytocin was given and uterine massage was carried out. Inspection of the perineum revealed a midline episiotomy with no further extension. This area was anesthetized with 1% lidocaine and then sutured with 3 -0 and 2-0 Vicryl suture in the usual multilayer fashion. Estimated blood loss was approximately 150 mL. She felt like she had to urinate and therefore a straight cath was performed with minimal urine noted. Both mother and are in stable condition.
[2018-05-11] MEDS ORDERED: HYDROCORTISONE 2.5% RECTAL CREAM 30 GM TUBE RECTAL PRN (17:30)
[2018-05-11] MEDS ORDERED: ZOLPIDEM 5 MG TAB PO PRN (17:30)
[2018-05-11] MEDS ORDERED: SIMETHICONE 80 MG CHEWABLE PO PRN (17:30)
[2018-05-11] MEDS ORDERED: diphenhydrAMINE 25 MG CAP PO PRN (17:30)
[2018-05-11] MEDS ORDERED: WITCH HAZEL 1 EACH MED..PAD TOPICAL PRN (17:30)
[2018-05-11] MEDS ORDERED: LANOLIN CREAM 5 GM TUBE TOPICAL PRN (17:30)
[2018-05-11] MEDS ORDERED: OXYTOCIN 20 UNITS/1000 ML NS 1,000 ML IV SCH (17:30)
[2018-05-11] MEDS ORDERED: BENZOCAINE/MENTHOL SPRAY 1 GM/SPRAY AEROSOL TOPICAL PRN (17:30)
[2018-05-11] MEDS ORDERED: diphenhydrAMINE 50 MG CAP PO PRN (17:30)
[2018-05-11] MEDS ORDERED: diphenhydrAMINE 50 MG/ML 1 ML VIAL IVP PRN ×2 (17:30)
[2018-05-11] MEDS: IBUPROFEN 600 MG TAB PO PRN ×2 (17:49→23:35)
[2018-05-11] MEDS: ACETAMINOPHEN TAB 325 MG TAB PO PRN (23:01)
[2018-05-11] MEDS: SENNOSIDES-DOCUSATE SODIUM 1 EACH TAB PO SCH (23:02)
[2018-05-12] MEDS: SENNOSIDES-DOCUSATE SODIUM 1 EACH TAB PO SCH ×2 (07:55→20:23)
[2018-05-12] MEDS: IBUPROFEN 600 MG TAB PO PRN ×2 (08:04→16:28)
[2018-05-12 08:13] LABS: Basophils # (A) 0.1 k/uL (0-0.2); Basophils % (A) 0 %; Eosinophils # (A) 0.1 k/uL (0-0.7); Eosinophils % (A) 1 %; HCT 30.8 % (34.0-46.0); Lymphocytes # (A) 2.1 k/uL (1.0-4.8); Lymphocytes % (A) 16 %; MCH 33.5 pg (25.0-35.0); MCHC 35.5 g/dL (31.0-37.0); MCV 94.2 fL (80.0-100.0); Mean Platelet Volume 11.5; Monocytes # (A) 0.9 k/uL (0-1.0); Monocytes % (A) 6 %; Neutrophils # (A) 10.2 k/uL (1.3-7.7); Neutrophils % (A) 76 %; Platelet Count 173 k/uL (150-450); RBC 3.27 m/uL (3.80-5.40); RDW 13.6 % (11.5-15.5); WBC 13.4 k/uL (3.8-10.6)
[2018-05-12 10:15] LABS: Large Platelets Present
--- NOTE | 2018-05-12 10:57 | P.PNOBGVD ---
Subjective - Subjective Principal diagnosis: Status post vaginal delivery day #1 Interval history: Patient is doing okay. She did have some hemorrhage approximate 5 hours after delivery and was given Hemabate. This did slow her bleeding but gave her also some diarrhea. This has resolved. She is working on breast- feeding. She states she has had a milky discharge when expressing from her nipples for almost 10 years now. She does state that she has had a prolactin level in the past that was normal. Patient reports: Reports appetite normal, Reports voiding normally, Reports pain well controlled, Reports ambulating normally [place]: doing well, nursing well Objective - Latest Vital Signs Latest vital signs: Vital Signs Temp Pulse Resp BP Pulse Ox 05/12/18 07:51 98.1 F 89 17 147/64 05/12/18 03:42 97.4 F L 99 18 146/92 99 05/12/18 00:00 98.5 F 86 18 138/95 96 05/11/18 19:31 112 H 15 134/97 100 05/11/18 18:57 110 H 17 151/81 05/11/18 18:29 102 H 16 159/76 05/11/18 18:15 107 H 16 135/80 05/11/18 17:57 101 H 16 142/86 05/11/18 17:45 118 H 17 137/88 05/11/18 17:30 98.6 F 129 H 17 129/82 05/11/18 13:03 98.2 F 89 17 143/82 Intake and Output 05/11/18 05/12/18 05/12/18 22:59 06:59 14:59 Other: # Voids 1 - Exam Extremities: Present: normal, edema (Trace). Absent: tenderness Abdomen: Present: normal appearance, soft. Absent: distention, tenderness Uterus: Present: normal, firm. Absent: tenderness - Labs Labs: Abnormal Lab Results - Last 24 Hours (Table) 05/12/18 Range/Units 06:11 WBC 13.4 H (3.8-10.6) k/uL RBC 3.27 L (3.80-5.40) m/uL Hgb 11.0 L D (11.4-16.0) gm/dL Hct 30.8 L (34.0-46.0) % Neutrophils # 10.2 H (1.3-7.7) k/uL Assessment and Plan Assessment: Status post vaginal delivery day #1 (1) 37 weeks gestation of Current Visit: Yes Status: Acute Code(s): Z3A.37 - 37 WEEKS GESTATION OF SNOMED Code(s): 63603872 (2) Gestational hypertension Current Visit: Yes Status: Acute Code(s): O13.9 - GESTATIONAL HTN W/O SIGNIFICANT PROTEINURIA, UNSP TRIMESTER SNOMED Code(s): 839724290 Plan: We'll continue with care. Will work on breast-feeding. We will observe blood pressures.
[2018-05-12] MEDS: ACETAMINOPHEN TAB 325 MG TAB PO PRN (20:23)
[2018-05-13] MEDS: IBUPROFEN 600 MG TAB PO PRN ×4 (00:33→18:20)
[2018-05-13] MEDS ORDERED: MORPHINE SULFATE (PF) 0.3 MG/0.3 ML SYR ONE (08:00)
[2018-05-13] MEDS ORDERED: OXYTOCIN 10 UNIT/ML 1 ML VIAL ONE (08:00)
[2018-05-13] MEDS ORDERED: DEXAMETHASONE SOD PHOS (MDV) 100 MG/10 ML VIAL ONE (08:00)
[2018-05-13] MEDS ORDERED: NALBUPHINE 10 MG/ML (1 ML AMP) ONE (08:00)
[2018-05-13] MEDS ORDERED: ONDANSETRON 4 MG/2 ML VIAL ONE (08:00)
[2018-05-13] MEDS ORDERED: KETOROLAC 30 MG/ML 1 ML VIAL ONE (08:00)
[2018-05-13] MEDS ORDERED: ePHEDrine SULFATE/0.9% NACL/PF 50 MG/5 ML SYRINGE IV ONE (08:00)
--- NOTE | 2018-05-13 08:50 | P.DS ---
Providers Date of admission: 05/11/18 06:43 Expected date of discharge: 05/13/18 Attending physician: Sabina Jean Primary care physician: Stated None - Discharge Diagnosis(es) (1) 37 weeks gestation of Current Visit: Yes Status: Acute (2) Gestational hypertension Current Visit: Yes Status: Acute Hospital Course: This is a 32-year-old female 1 para 0 at 37-4/7 weeks who presented with contractions and was found to have elevated blood pressures. She underwent oxytocin augmentation of labor due to gestational hypertension and delivered a viable male infant vaginally on 05/11/2018 with scores of 8 at 1 minute and 9 at 5 minutes and weight of 6 lbs. 2 oz. Her course has been complicated by her hip pain which she had before the delivery. She did have an episode of hemorrhage that was resolved with Hemabate. She also complains of hemorrhoid pain this morning. Lochia is decreasing. Vital signs are stable. Abdomen is soft with fundus firm and nontender. Extremities show negative Homans. Impression is status post vaginal delivery day #2. Plan is to discharge home later today. Routine instructions are given. She is advised follow-up in the office in approximately 1 week for a blood pressure check and in 6 weeks for check. She is advised to call the office if she has any further questions or concerns prior to her appointment time. Procedures: Oxytocin augmentation of labor Spontaneous vaginal delivery of a viable male on 05/11/2018 Patient Condition at Discharge: Stable Plan - Discharge Summary New Discharge Prescriptions: New Ibuprofen [Motrin] 600 mg PO Q6HR PRN #60 tab PRN Reason: Mild Pain Or Fever >= 100.5 Continue Pnv No.95/Ferrous Fum/Folic AC [ Multivitamin Tablet] 1 tab PO DAILY Discharge Medication List Pnv No.95/Ferrous Fum/Folic AC [ Multivitamin Tablet] 1 tab PO DAILY [History] Ibuprofen [Motrin] 600 mg PO Q6HR PRN #60 tab 05/13/18 [Rx] Follow up Appointment(s)/Referral(s): Sabina Jean DO [Doctor of Osteopathic Medicine] - 1 Week (Blood pressure check in approximately one week 6 weeks check) Activity/Diet/Wound Care/Special Instructions: Instructions 1. Do not begin any exercise program for 3 weeks. 2. Do not resume sexual relations for 3 weeks or longer if uncomfortable. 3. You may take tub baths or showers at any time. 4. You may use tampons if desired after 3 weeks. 5. Keep the area of episiotomy (stitches) clean and dry. 6. If you are not nursing, wear a good fitting, supportive bra during the day and limit fluid intake for at least 1 week to prevent breast engorgement. 7. Call the office, [phone], within the next week to make appointment for your 6 week checkup if it has not already been made. 8. Report any of the following occurrences to the doctor promptly: a. Heavy, excessive bleeding b. Chills, fever c. Burning or frequency of urination d. Pain or redness and breasts if nursing e. Increasing pain or swelling in episiotomy (stitches). In addition to the above instructions, the following additional should be followed: 1. No heavy lifting or straining (exercising) until after 6 week checkup. 2. Keep abdominal incision clean and dry: You may wear a dressing if more comfortable. 3. Make office appointment for 10 days after going home or as instructed by her doctor. Discharge Disposition: HOME SELF-CARE
[2018-05-13] MEDS: SENNOSIDES-DOCUSATE SODIUM 1 EACH TAB PO SCH ×2 (11:10→23:05)
[2018-05-13] MEDS: ACETAMINOPHEN TAB 325 MG TAB PO PRN (13:53)
[2018-05-13 15:10] VITALS: BP 140/86; PULSE 95; RESP 18; TEMP 98.2
== END 2018-05-13 22:35 | disposition home or self-care (01) | DRG 807 ==
LOC: FBPOP 04:40 → 4FBP 06:43
PROVIDERS: ADMIT Obstetrics & Gynecology; ATTEND Obstetrics & Gynecology
PROC: 10E0XZZ Delivery of Products of Conception, External Approach (ICD-10-PCS; principal; 2018-05-11)
PROC: 0W8NXZZ Division of Female Perineum, External Approach (ICD-10-PCS; 2018-05-11)
PROC: 3E033VJ Introduction of Other Hormone into Peripheral Vein, Percutaneous Approach (ICD-10-PCS; 2018-05-11)
PROC: 10907ZC Drainage of Amniotic Fluid, Therapeutic from Products of Conception, Via Natural or Artificial Opening (ICD-10-PCS; 2018-05-11)
PROC: 00HU33Z Insertion of Infusion Device into Spinal Canal, Percutaneous Approach (ICD-10-PCS; 2018-05-11)
PROC: 3E0R3BZ Introduction of Anesthetic Agent into Spinal Canal, Percutaneous Approach (ICD-10-PCS; 2018-05-11)
DX: O14.94 Unspecified pre-eclampsia, complicating childbirth (principal); Z37.0 Single live birth; O72.1 Other immediate postpartum hemorrhage; O22.43 Hemorrhoids in pregnancy, third trimester; O75.81 Maternal exhaustion complicating labor and delivery; O43.193 Other malformation of placenta, third trimester; Z3A.37 37 weeks gestation of pregnancy; O99.284 Endocrine, nutritional and metabolic diseases complicating childbirth; E78.5 Hyperlipidemia, unspecified; O99.334 Smoking (tobacco) complicating childbirth; F17.210 Nicotine dependence, cigarettes, uncomplicated; O99.62 Diseases of the digestive system complicating childbirth; K21.9 Gastro-esophageal reflux disease without esophagitis; M25.559 Pain in unspecified hip; M54.9 Dorsalgia, unspecified; R19.7 Diarrhea, unspecified; Z90.49 Acquired absence of other specified parts of digestive tract; Z79.899 Other long term (current) drug therapy; Z98.890 Other specified postprocedural states; Z82.49 Family history of ischemic heart disease and other diseases of the circulatory system; Z80.9 Family history of malignant neoplasm, unspecified
CPT/HCPCS: 59025; 81003; 82565; 82570; 83615; 84156; 84450; 84460; 84520; 84550; 85025; 85610; 85730; 86850; 86870; 86880; 86900; 86901; 88307; 99215

== ENCOUNTER → 2018-08-13 | Outpatient (CLI) | payer OTHER | END | disposition home or self-care (01) | LOC: LABWHC1 17:01 | PROVIDERS: ATTEND Obstetrics & Gynecology | DX: N92.6 Irregular menstruation, unspecified (principal) | CPT/HCPCS: 36415; 84702 ==

== ENCOUNTER 2019-02-22 11:50 | Emergency (ER) | payer OTHER ==
--- NOTE | 2019-02-22 12:53 | ED ---
URI HPI - General Chief Complaint: Upper Respiratory Infection Stated Complaint: CHEST CONGESTION, COUGH Time Seen by Provider: 02/22/19 12:15 Source: patient, RN notes reviewed Mode of arrival: ambulatory Limitations: no limitations - History of Present Illness Initial Comments: 33-year-old female sent emergency from chief complaint fever cough congestion bodyaches. Patient states symptoms started 3-4 days ago. Patient's son is sick with similar symptoms. Patient states that she's had 2 bloody nose which is unusual. Patient that she is coughing so hard that she has vomiting. She's been taken smoker, cough and cold medications. Patient denies abdominal pain including nausea and diarrhea. Patient denies any chance . Patient denies any current headache or neck stiffness. - Related Data Home Medications Medication Instructions Recorded Confirmed Pnv No.95/Ferrous Fum/Folic AC 1 tab PO DAILY 10/16/17 05/11/18 [ Multivitamin Tablet] Previous Rx's Medication Instructions Recorded Ibuprofen [Motrin] 600 mg PO Q6HR PRN #60 tab 05/13/18 Allergies Allergy/AdvReac Type Severity Reaction Status Date / Time No Known Allergies Allergy Verified 02/22/19 12:08 Review of Systems ROS Statement: Those systems with pertinent positive or pertinent negative responses have been documented in the HPI. ROS Other: All systems not noted in ROS Statement are negative. Past Medical History Past Medical History: GERD/Reflux, Hyperlipidemia Additional Past Medical History / Comment(s): degenerative disc disease History of Any Multi-Drug Resistant Organisms: None Reported Past Surgical History: Back Surgery, Cholecystectomy Additional Past Surgical History / Comment(s): 06/24/14 laminectomy and decompression L5-S1 and discectomy for decompression L5-S1, 05/06/14 EGD and colonoscopy with bxs which were negative. Additional Past Anesthesia/Blood Transfusion Reaction / Comment(s): Pt states she had a severe headach post op day 1. Past Psychological History: No Psychological Hx Reported Smoking Status: Current every day smoker Past Alcohol Use History: None Reported Past Drug Use History: None Reported - Past Family History Mother Family Medical History: Cancer Father Family Medical History: Coronary Artery Disease (CAD), Myocardial Infarction (PR) General Exam Limitations: no limitations General appearance: alert, in no apparent distress Head exam: Present: atraumatic, normocephalic, normal inspection Eye exam: Present: normal appearance, PERRL, EOMI. Absent: scleral icterus, conjunctival injection, periorbital swelling ENT exam: Present: normal exam, normal oropharynx, mucous membranes moist Neck exam: Present: normal inspection. Absent: tenderness, meningismus, lymphadenopathy Respiratory exam: Present: normal lung sounds bilaterally. Absent: respiratory distress, wheezes, rales, rhonchi, stridor Cardiovascular Exam: Present: regular rate, normal rhythm, normal heart sounds. Absent: systolic murmur, diastolic murmur, rubs, gallop, clicks Neurological exam: Present: alert, oriented X3 Skin exam: Present: warm, dry, intact, normal color. Absent: rash Course Vital Signs 02/22/19 02/22/19 12:09 12:18 Temperature 98.2 F Pulse Rate 93 Respiratory 18 18 Rate Blood Pressure 107/77 O2 Sat by Pulse 97 Oximetry Medical Decision Making - Medical Decision Making Chest x-ray is unremarkable. Patient has very mild symptoms at this time most likely consistent with a cold that her son has. Supportive treatment will be continued patient will follow-up PCP and return for any worsening symptoms. Vitals are stable patient discharged in stable condition. Disposition Clinical Impression: Acute upper respiratory infection Disposition: HOME SELF-CARE Condition: Stable Instructions (If sedation given, give patient instructions): Upper Respiratory Infection (ED) Additional Instructions: Please return to the Emergency Department if symptoms worsen or any other concerns. Is patient prescribed a controlled substance at d/c from ED?: No Referrals: None,Stated [Primary Care Provider] - 1-2 days Time of Disposition: 13:21
--- NOTE | 2019-02-22 13:00 | XR ---
EXAMINATION TYPE: XR chest 2V DATE OF EXAM: 02/22/2019 COMPARISON: Chest x-ray July 17, 2016 HISTORY: Cough and fever. TECHNIQUE: Frontal and lateral views of the chest are obtained. FINDINGS: There is no focal air space opacity, pleural effusion, or pneumothorax seen. The cardiac silhouette size is within normal limits. The osseous structures are intact. IMPRESSION: No suspicious acute pulmonary process.
[2019-02-22 13:46] VITALS: BP 112/63; PULSE 89; RESP 16; TEMP 98.7
== END 2019-02-22 13:35 | disposition home or self-care (01) ==
LOC: EC 11:50
DX: J06.9 Acute upper respiratory infection, unspecified (principal); R04.0 Epistaxis; F17.200 Nicotine dependence, unspecified, uncomplicated
CPT/HCPCS: 71046; 99283

== ENCOUNTER 2019-02-25 10:52 | Emergency (ER) | payer OTHER ==
[2019-02-25 10:57] VITALS: RESP 18; TEMP 98.4
[2019-02-25] MEDS ORDERED: ONDANSETRON 4 MG/2 ML VIAL IVP STA (11:08)
[2019-02-25] MEDS ORDERED: SODIUM CHLORIDE 0.9% 1,000 ML IV STA (11:08)
[2019-02-25] MEDS ORDERED: KETOROLAC 30 MG/ML 1 ML VIAL IVP STA (11:08)
--- NOTE | 2019-02-25 11:39 | ED ---
Abdominal Pain HPI - General Chief Complaint: Abdominal Pain Stated Complaint: Abd pain Time Seen by Provider: 02/25/19 10:58 Source: patient, family Mode of arrival: ambulatory - History of Present Illness Initial Comments: Patient is a 33-year-old female presenting to the emergency Department with complaints of right lower quadrant pain that started yesterday. Patient states she was seen in the ER approximately 3 days ago for cough and cold symptoms and was diagnosed with a viral illness. Chest x-ray at that time was normal. Patient states that yesterday she noticed pain in her right lower quadrant but she thought it might be just from coughing. Patient states the pain has now increased and she describes it as very sharp and persisting. Patient denies ever having this kind of pain before. Patient admits to cholecystectomy, no other abdominal surgeries. Patient also admits to nausea and vomiting, no diarrhea. Patient denies fever, chills, chest pain, shortness of breath. She states she still has a bit of a cough from her URI but nothing more than usual. Patient denies any urinary complaints. Patient denies being at this time. Patient has no other complaints at this time. Upon arrival to the ER, patient is slightly tachycardia at 113, rest of vitals are normal. - Related Data Home Medications Medication Instructions Recorded Confirmed Pnv No.95/Ferrous Fum/Folic AC 1 tab PO DAILY 10/16/17 05/11/18 [ Multivitamin Tablet] Previous Rx's Medication Instructions Recorded Ibuprofen [Motrin] 600 mg PO Q6HR PRN #60 tab 05/13/18 Albuterol Inhaler [Ventolin Hfa 1 - 2 puff INHALATION RT-Q6H PRN 02/25/19 Inhaler] #1 inhaler Amoxicillin/Potassium Clav 1 tab PO BID 7 Days #14 tab 02/25/19 [Augmentin 875-125 Tablet] Ondansetron Odt [Zofran Odt] 4 mg PO Q8HR PRN #10 tab 02/25/19 Allergies Allergy/AdvReac Type Severity Reaction Status Date / Time No Known Allergies Allergy Verified 02/22/19 12:08 Review of Systems ROS Statement: Those systems with pertinent positive or pertinent negative responses have been documented in the HPI. ROS Other: All systems not noted in ROS Statement are negative. Past Medical History Past Medical History: Hyperlipidemia Additional Past Medical History / Comment(s): degenerative disc disease History of Any Multi-Drug Resistant Organisms: None Reported Past Surgical History: Back Surgery, Cholecystectomy Additional Past Surgical History / Comment(s): 06/24/14 laminectomy and decompression L5-S1 and discectomy for decompression L5-S1, 05/06/14 EGD and colonoscopy with bxs which were negative. Additional Past Anesthesia/Blood Transfusion Reaction / Comment(s): Pt states she had a severe headach post op day 1. Past Psychological History: No Psychological Hx Reported Smoking Status: Current every day smoker Past Alcohol Use History: None Reported Past Drug Use History: None Reported - Past Family History Mother Family Medical History: Cancer Father Family Medical History: Coronary Artery Disease (CAD), Myocardial Infarction ([place]) General Exam - General Exam Comments Initial Comments: GENERAL: Well-appearing, well-nourished and in no acute distress, although appears uncomfortable, holding her right lower quadrant. HEAD: Atraumatic, normocephalic. EYES: Pupils equal round and reactive to light, extraocular movements intact, sclera anicteric, conjunctiva are normal. ENT: Nares patent, oropharynx clear without exudates. Moist mucous membranes. NECK: Normal range of motion, supple without lymphadenopathy or JVD. LUNGS: Breath sounds clear to auscultation bilaterally and equal. No wheezes rales or rhonchi. HEART: Regular rate and rhythm without murmurs, rubs or gallops. ABDOMEN: Tender to palpation in the right lower quadrant, positive rebound and guarding tenderness. Soft, normoactive bowel sounds. No masses appreciated. : Deferred EXTREMITIES: Normal range of motion, no pitting or edema. No clubbing or cyanosis. NEUROLOGICAL: Normal speech, normal gait. PSYCH: Normal mood, normal affect. SKIN: Warm, Dry, normal turgor, no rashes or lesions noted. Course Vital Signs 02/25/19 02/25/19 02/25/19 10:54 13:14 14:48 Temperature 98.4 F 98.4 F Pulse Rate 113 H 89 89 Respiratory 18 18 18 Rate Blood Pressure 134/94 132/76 132/76 O2 Sat by Pulse 98 95 95 Oximetry Medical Decision Making - Medical Decision Making Patient is a 33-year-old female presenting with right lower quadrant pain since yesterday. Vitals show slightly tachycardia on arrival, rest of vitals normal. On exam patient has severe tenderness of the right lower quadrant. Rest of exam is normal. Lab work shows hypokalemia at 2.9, rest of labs are normal. UA is normal. EKG shows no acute changes. CT of the abdomen shows mild to moderate surgical ventral wall thickening in the right hemicolon suggestive of infectious or inflammatory colitis. Small amount of right sided cul-de-sac free fluid to be reactive to colitis or could be physiological. Chest x-ray shows a new right middle and lower lobe acute infiltrates. Patient's vitals remained stable. Patient was given fluids, Toradol and Zofran for symptoms. Potassium was also replenished. Patient is reporting a decrease in her pain. I discussed with patient that she will be treated with Augmentin for her colitis as well as her pneumonia. Patient will also be given a prescription for an inhaler, Zofran as needed for symptom medical relief. Patient is stable for discharge at this time. I discussed with patient to follow up with her PCP in the next one to 3 days to recheck her potassium. Patient is in agreement with this plan of care. Return parameters were discussed with the patient she verbalized understanding. Case discussed in detail with Dr. Beyer who agrees with this plan and care. - Lab Data Result diagrams: 02/25/19 11:29 02/25/19 11:29 Lab Results 02/25/19 02/25/19 02/25/19 Range/Units 11:29 11:29 11:29 WBC 7.5 (3.8-10.6) k/uL RBC 4.63 (3.80-5.40) m/uL Hgb 14.2 (11.4-16.0) gm/dL Hct 40.2 (34.0-46.0) % MCV 86.9 (80.0-100.0) fL MCH 30.8 (25.0-35.0) pg MCHC 35.4 (31.0-37.0) g/dL RDW 12.5 (11.5-15.5) % Plt Count 258 (150-450) k/uL Neutrophils % 80 % Lymphocytes % 12 % Monocytes % 5 % Eosinophils % 1 % Basophils % 1 % Neutrophils # 6.0 (1.3-7.7) k/uL Lymphocytes # 0.9 L (1.0-4.8) k/uL Monocytes # 0.4 (0-1.0) k/uL Eosinophils # 0.0 (0-0.7) k/uL Basophils # 0.1 (0-0.2) k/uL Sodium 139 (137-145) mmol/L Potassium 2.9 L (3.5-5.1) mmol/L Chloride 104 (98-107) mmol/L Carbon Dioxide 27 (22-30) mmol/L Anion Gap 8 mmol/L BUN 8 (7-17) mg/dL Creatinine 0.42 L (0.52-1.04) mg/dL Est GFR (CKD-EPI)AfAm >90 (>60 ml/min/1.73 sqM) Est GFR (CKD-EPI)NonAf >90 (>60 ml/min/1.73 sqM) Glucose 121 H (74-99) mg/dL Plasma Lactic Acid [place] (0.7-2.0) mmol/L Calcium 9.0 (8.4-10.2) mg/dL Total Bilirubin 0.4 (0.2-1.3) mg/dL AST 23 (14-36) U/L ALT 20 (9-52) U/L Alkaline Phosphatase 84 (38-126) U/L Total Protein 6.8 (6.3-8.2) g/dL Albumin 3.9 (3.5-5.0) g/dL Amylase 38 (30-110) U/L Lipase 32 (23-300) U/L Urine Color Urine Appearance (Clear) Urine pH (5.0-8.0) Ur Specific [place] (1.001-1.035) Urine Protein (Negative) Urine Glucose (UA) (Negative) Urine Ketones (Negative) Urine Blood (Negative) Urine Nitrite (Negative) Urine Bilirubin (Negative) Urine Urobilinogen (<2.0) mg/dL Ur Leukocyte Esterase (Negative) Urine RBC (0-5) /hpf Urine WBC (0-5) /hpf Ur Squamous Epith Cells (0-4) /hpf Urine Mucus (None) /hpf Urine HCG, Qual Not Detected (Not Detectd) 02/25/19 02/25/19 Range/Units 11:29 13:10 WBC (3.8-10.6) k/uL RBC (3.80-5.40) m/uL Hgb (11.4-16.0) gm/dL Hct (34.0-46.0) % MCV (80.0-100.0) fL MCH (25.0-35.0) pg MCHC (31.0-37.0) g/dL RDW (11.5-15.5) % Plt Count (150-450) k/uL Neutrophils % % Lymphocytes % % Monocytes % % Eosinophils % % Basophils % % Neutrophils # (1.3-7.7) k/uL Lymphocytes # (1.0-4.8) k/uL Monocytes # (0-1.0) k/uL Eosinophils # (0-0.7) k/uL Basophils # (0-0.2) k/uL Sodium (137-145) mmol/L Potassium (3.5-5.1) mmol/L Chloride (98-107) mmol/L Carbon Dioxide (22-30) mmol/L Anion Gap mmol/L BUN (7-17) mg/dL Creatinine (0.52-1.04) mg/dL Est GFR (CKD-EPI)AfAm (>60 ml/min/1.73 sqM) Est GFR (CKD-EPI)NonAf (>60 ml/min/1.73 sqM) Glucose (74-99) mg/dL Plasma Lactic Acid [place] 1.5 (0.7-2.0) mmol/L Calcium (8.4-10.2) mg/dL Total Bilirubin (0.2-1.3) mg/dL AST (14-36) U/L ALT (9-52) U/L Alkaline Phosphatase (38-126) U/L Total Protein (6.3-8.2) g/dL Albumin (3.5-5.0) g/dL Amylase (30-110) U/L Lipase (23-300) U/L Urine Color Yellow Urine Appearance Cloudy H (Clear) Urine pH 6.5 (5.0-8.0) Ur Specific [place] 1.026 (1.001-1.035) Urine Protein 1+ H (Negative) Urine Glucose (UA) Negative (Negative) Urine Ketones Trace H (Negative) Urine Blood Negative (Negative) Urine Nitrite Negative (Negative) Urine Bilirubin Negative (Negative) Urine Urobilinogen <2.0 (<2.0) mg/dL Ur Leukocyte Esterase Negative (Negative) Urine RBC 1 (0-5) /hpf Urine WBC 2 (0-5) /hpf Ur Squamous Epith Cells 9 H (0-4) /hpf Urine Mucus Moderate H (None) /hpf Urine HCG, Qual (Not Detectd) - EKG Data EKG Comments: Ventricular rate 84,. Full 140, QTC 432, normal sinus rhythm. No acute ST segment changes. Disposition Clinical Impression: Colitis, Pneumonia, Hypokalemia Disposition: HOME SELF-CARE Condition: Stable Instructions (If sedation given, give patient instructions): Hypokalemia (ED), Bacterial Pneumonia (ED), Colitis (ED) Additional Instructions: Please return to the Emergency Department if symptoms worsen or any other concerns. Take antibiotic as prescribed. Follow up with PCP to recheck potassium level. Prescriptions: Amoxicillin/Potassium Clav [Augmentin 875-125 Tablet] 1 tab PO BID 7 Days #14 ta b Albuterol Inhaler [Ventolin Hfa Inhaler] 1 - 2 puff INHALATION RT-Q6H PRN #1 inhaler PRN Reason: Cough Ondansetron Odt [Zofran Odt] 4 mg PO Q8HR PRN #10 tab PRN Reason: Nausea Is patient prescribed a controlled substance at d/c from ED?: No Referrals: None,Stated [Primary Care Provider] - 1-2 days
[2019-02-25 11:48] LABS: Basophils # (A) 0.1 k/uL (0-0.2); Basophils % (A) 1 %; Eosinophils % (A) 1 %; HCT 40.2 % (34.0-46.0); HGB 14.2 gm/dL (11.4-16.0); Lymphocytes # (A) 0.9 k/uL (1.0-4.8); Lymphocytes % (A) 12 %; MCH 30.8 pg (25.0-35.0); MCHC 35.4 g/dL (31.0-37.0); MCV 86.9 fL (80.0-100.0); Mean Platelet Volume 7.2; Monocytes # (A) 0.4 k/uL (0-1.0); Monocytes % (A) 5 %; Neutrophils % (A) 80 %; Platelet Count 258 k/uL (150-450); RBC 4.63 m/uL (3.80-5.40); RDW 12.5 % (11.5-15.5); WBC 7.5 k/uL (3.8-10.6)
[2019-02-25 11:59] LABS: ALT 20 U/L (9-52); AST 23 U/L (14-36); African American GFR (CKD) >90 (>60 ml/min/1.73 sqM); Albumin 3.9 g/dL (3.5-5.0); Alkaline Phosphatase 84 U/L (38-126); Amylase 38 U/L (30-110); Anion Gap 8 mmol/L; Blood Urea Nitrogen 8 mg/dL (7-17); Carbon Dioxide 27 mmol/L (22-30); Chloride 104 mmol/L (98-107); Glucose 121 mg/dL (74-99); Non-African American GFR(CKD) >90 (>60 ml/min/1.73 sqM); Potassium 2.9 mmol/L (3.5-5.1); Sodium 139 mmol/L (137-145); Total Bilirubin 0.4 mg/dL (0.2-1.3); Total Protein 6.8 g/dL (6.3-8.2)
--- NOTE | 2019-02-25 13:05 | CT ---
EXAMINATION TYPE: CT abdomen pelvis w con DATE OF EXAM: 02/25/2019 COMPARISON: Correlation CT chest 04/04/2015 HISTORY: 33-year-old female abdominal pain, RLQ pain TECHNIQUE: Contiguous axial scanning of the abdomen and pelvis following administration of 100 ml Iso anuj 300 IV contrast. Delayed images through the kidneys and coronal/sagittal reconstructions perform ed. CT DLP: 735 mGycm Automated exposure control for dose reduction was used. FINDINGS: Multifocal areas of groundglass and consolidation within the visualized lung bases, most extensive at the medial right base. No pleural effusion. Liver mildly enlarged at 18.7 cm. No focal lesion. Portal venous system is patent. No biliary ductal dilatation. Cholecystectomy clips. Adrenal glands, kidneys, spleen, and pancreas appear within normal limits. No dilated small bowel or free air. No mesenteric or retroperitoneal lymphadenopathy. There is mild to moderate circumferential wall thickening of the right hemicolon. No significant stoo l burden. Segments of a normal appendix are visualized. Bladder not distended. Uterus anteverted. Follicular changes in both ovaries. Small amount of right c ul-de-sac free fluid may be reactive or physiologic. No pelvic lymphadenopathy seen. Bones: Degenerative disc disease L5-S1. There is a central disc extrusion with superior migration of disc material. Mild narrowing of the spinal canal at this level. IMPRESSION: 1. MILD TO MODERATE CIRCUMFERENTIAL WALL THICKENING OF THE RIGHT HEMICOLON SUGGESTS A NONSPECIFIC INF ECTIOUS OR INFLAMMATORY COLITIS. 2. EXTENSIVE MULTIFOCAL GROUNDGLASS AND CONSOLIDATION WITHIN THE VISUALIZED LUNG BASES. SOME DIFFEREN TIAL CONSIDERATIONS INCLUDE MULTIFOCALPNEUMONIA, ASPIRATION, OR INTERSTITIAL PNEUMONITIS. CLINICALLY CORRELATE. 3. SMALL AMOUNT OF RIGHT-SIDED CUL-DE-SAC FREE FLUID COULD BE REACTIVE TO THE COLITIS OR COULD BE PHY SIOLOGIC.
[2019-02-25 13:15] VITALS: BP 132/76; PULSE 89
--- NOTE | 2019-02-25 13:38 | XR ---
EXAMINATION TYPE: XR chest 2V DATE OF EXAM: 02/25/2019 COMPARISON: Chest x-ray February 22, 2019. HISTORY: Cough. TECHNIQUE: Frontal and lateral views of the chest are obtained. FINDINGS: There is new Lateral right hilar opacity confirmed on 2 views along with new right basilar medial opacity confirmed on 2 views. Left lung is clear. No pleural effusion or pneumothorax. The ca rdiac silhouette size is within normal limits. The osseous structures are intact. Contrast excretio n from recent abdominal CT noted in the collecting systems of both kidneys. IMPRESSION: New right middle and lower lobe acute infiltrates.
[2019-02-25 13:40] LABS: Appearance,Urine Cloudy (Clear); Bilirubin,Urine Negative (Negative); Blood,Urine Negative (Negative); Color,Urine Yellow; Glucose,Urine (UA) Negative (Negative); Ketones,Urine Trace (Negative); Leukocyte Esterase,Urine Negative (Negative); Mucus,Urine Moderate /hpf; Nitrite,Urine Negative (Negative); PH, Urine 6.5 (5.0-8.0); Protein,Urine 1+ (Negative); RBC,Urine 1 /hpf (0-5); Specific Gravity,Urine 1.026 (1.001-1.035); Squamous Epithelial Cell,Urine 9 /hpf (0-4); Urobilinogen,Urine <2.0 mg/dL (<2.0)
[2019-02-25] MEDS ORDERED: POTASSIUM CHLORIDE ER 20 MEQ TAB.ER PO STA (14:10)
== END 2019-02-25 14:48 | disposition home or self-care (01) ==
LOC: EC 10:52
DX: K52.9 Noninfective gastroenteritis and colitis, unspecified (principal); E87.6 Hypokalemia; J18.1 Lobar pneumonia, unspecified organism; R00.0 Tachycardia, unspecified; F17.200 Nicotine dependence, unspecified, uncomplicated; Z90.49 Acquired absence of other specified parts of digestive tract; Z82.49 Family history of ischemic heart disease and other diseases of the circulatory system
CPT/HCPCS: 36415; 71046; 74177; 80053; 81001; 81025; 82150; 83605; 83690; 85025; 93005; 96361; 96374; 96375; 99284

== ENCOUNTER 2019-03-07 18:59 | Emergency (ER) | payer OTHER ==
[2019-03-07] MEDS ORDERED: DEXAMETHASONE SOD PHOSPHATE 10 MG/ML 1 ML VIAL IV STA (19:39)
[2019-03-07] MEDS ORDERED: DIAZEPAM 5 MG TAB PO STA (19:47)
[2019-03-07] MEDS ORDERED: methylPREDNISolone SOD SUCCI 125 MG/2 ML VIAL IV STA (19:48)
[2019-03-07] MEDS ORDERED: SODIUM CHLORIDE 0.9% 1,000 ML IV STA (19:50)
[2019-03-07] MEDS: KETOROLAC 30 MG/ML 1 ML VIAL IVP STA ×2 (20:05→21:33)
[2019-03-07] MEDS ORDERED: HYDROcodone/APAP 5-325MG 1 EACH TAB PO STA (20:08)
[2019-03-07] MEDS ORDERED: ACET/COD 300 MG/30 MG STARTER PACK 6 TAB BTL PO STA (21:32)
--- NOTE | 2019-03-07 21:33 | ED ---
General Adult HPI - General Chief complaint: Back Pain/Injury Stated complaint: Back Pain, leg numbness Time Seen by Provider: 03/07/19 19:15 Source: patient, RN notes reviewed, old records reviewed Mode of arrival: ambulatory Limitations: no limitations - History of Present Illness Initial comments: 33-year-old female patient passed no history of lumbar laminectomy and discectomy presents to ED for chief complaint of left paralumbar back pain with radiculopathy. Patient was that she has history of chronic back pain. Reports that she had recently been coughing a lot after being treated for pneumonia. Reports that she wishes strained her back. She is having left paralumbar back pain with radiculopathy standing down the left lower extremity. Denies any saddle anesthesia. Denies any lower extremity weakness. Ambulatory without difficulty. Denies loss of bowel or bladder control. Patient ports that she sat down to urinate earlier today and while straining she did street some feces however nothing since. Denies any other complaints at this time. Denies any chance of being . Systemic: Pt denies fatigue, fever/chills, rash. Pt denies weakness, night sweats, weight loss. Neuro: Pt denies headache, visual disturbances, syncope or pre-syncope. HEENT: Pt denies ocular discharge or irritation, otalgia, rhinorrhea, pharyngitis or notable lymphadenopathy. Cardiopulmonary: Pt denies chest pain, SOB, heart palpitations, dyspnea on exertion. Abdominal/GI: Pt denies abdominal pain, n/v/d. : Pt denies dysuria, burning w/ urination, frequency/urgency. Denies new onset urinary or bowel incontinence. MSK: Pt denies myalgia, loss of strength or function in extremities. Neuro: Pt denies new onset weakness. - Related Data Home Medications Medication Instructions Recorded Confirmed Albuterol Inhaler [Ventolin Hfa 2 puff INHALATION RT-Q6H PRN 02/28/19 02/28/19 Inhaler] Ibuprofen [Motrin Ib] 600 mg PO TID PRN 02/28/19 02/28/19 Previous Rx's Medication Instructions Recorded Ipratropium-Albuterol Nebulize 3 ml INHALATION RT-Q4H PRN 7 Days 03/01/19 [Duoneb 0.5 mg-3 mg/3 ml Soln] #1 ampul.neb Levofloxacin [Levaquin] 750 mg PO DAILY #9 tab 03/01/19 Ondansetron Odt [Zofran ODT] 4 mg PO Q8HR PRN #10 tab 03/01/19 guaiFENesin-DM 600/30MG [Mucinex 1 each PO Q12HR #10 tab.er.12h 03/01/19 Dm] metroNIDAZOLE [Flagyl] 500 mg PO TID #20 tab 03/01/19 predniSONE 50 mg PO DAILY 4 Days #4 tab 03/07/19 Allergies Allergy/AdvReac Type Severity Reaction Status Date / Time ceftriaxone Allergy Rash/Hives Verified 03/07/19 19:08 Review of Systems ROS Statement: Those systems with pertinent positive or pertinent negative responses have been documented in the HPI. ROS Other: All systems not noted in ROS Statement are negative. Past Medical History Past Medical History: Hyperlipidemia Additional Past Medical History / Comment(s): degenerative disc disease History of Any Multi-Drug Resistant Organisms: None Reported Past Surgical History: Back Surgery, Cholecystectomy Additional Past Surgical History / Comment(s): 06/24/14 laminectomy and decompression L5-S1 and discectomy for decompression L5-S1, 05/06/14 EGD and colonoscopy with bxs which were negative. Additional Past Anesthesia/Blood Transfusion Reaction / Comment(s): Pt states she had a severe headache post op day 1. Past Psychological History: No Psychological Hx Reported Smoking Status: Current every day smoker Past Alcohol Use History: None Reported Past Drug Use History: None Reported - Past Family History Mother Family Medical History: Cancer Father Family Medical History: Coronary Artery Disease (CAD), Myocardial Infarction (ID) General Exam - General Exam Comments Initial Comments: Constitutional: NAD, AOX3, Pt has pleasant affect. HEENT: [place]/AT, trachea midline, neck supple, no lymphadenopathy. Posterior pharynx non erythematous, without exudates. External ears appear normal, without discharge. Mucous membranes moist. Eyes PERRLA, EOM intact. There is no scleral icterus. No pallor noted. Cardiopulmonary: RRR, no murmurs, rubs or gallops, no JVD noted. Lungs CTAB in anterior and posterior hurst. No peripheral edema. Abdominal exam: Abdomen soft and non-distended. Abdomen non-tender to palpation in all 4 quadrants. Bowel sounds active in LLQ. No hepatosplenomegaly. No ecchymosis Neuro: CN II-XII grossly intact. No nuchal rigidity. No raccon eyes, no ornelas sign, no hemotympanum. No cervical spinal tenderness. MSK: 5 out of 5 strength psoas quadriceps muscles. Patellar reflex 2 out of 4 bilaterally. Heel to toe walking intact. Left paralumbar region mildly tender to palpation. No skin changes. No posterior calf tenderness bilaterally, homans sign negative bilaterally. Posterior tibialis and radial pulse +2 bilaterally. Sensation intact in upper and lower extremities. Full active ROM in upper and lower extremities, 5/5 stregnth. Limitations: no limitations Course Vital Signs 03/07/19 03/07/19 19:06 21:40 Temperature 98.7 F 98.6 F Pulse Rate 83 80 Respiratory 16 18 Rate Blood Pressure 130/91 136/72 O2 Sat by Pulse 94 L 100 Oximetry Medical Decision Making - Medical Decision Making 33-year-old female patient passed no history of lumbar laminectomy and discectomy presents to ED for chief complaint of left paralumbar back pain with radiculopathy. Patient was that she has history of chronic back pain. Reports that she had recently been coughing a lot after being treated for pneumonia. Reports that she wishes strained her back. She is having left paralumbar back pain with radiculopathy standing down the left lower extremity. Denies any saddle anesthesia. Denies any lower extremity weakness. Ambulatory without difficulty. Denies loss of bowel or bladder control. Patient ports that she sat down to urinate earlier today and while straining she did street some feces however nothing since. Denies any other complaints at this time. Denies any chance of being . Patient vital signs stable, afebrile. Physical exam displayed: 5 out of 5 strength psoas quadriceps muscles. Patellar reflex 2 out of 4 bilaterally. Heel to toe walking intact. Left paralumbar region mildly tender to palpation. No skin changes. Patient declined a rectal exam which was recommended. Bladder scan revealed 75 mL. Patient did urinate without difficulty emergency Department. Ambulatory without difficulty. Patient discharged with follow-up Dr. Tang and will return to ER physician worsens. Case discussed with Dr. Setrling. Disposition Clinical Impression: Lumbar back pain with radiculopathy affecting left lower extremity Disposition: HOME SELF-CARE Condition: Stable Instructions (If sedation given, give patient instructions): Acute Low Back Pain (ED) Additional Instructions: Take medications as directed. Follow-up with Dr. Tang tomorrow. Follow-up with primary care provider tomorrow. Return to ER if condition worsens in any way. Prescriptions: predniSONE 50 mg PO DAILY 4 Days #4 tab Is patient prescribed a controlled substance at d/c from ED?: No Referrals: None,Stated [Primary Care Provider] - 1-2 days Marcela Tang DO [Doctor of Osteopathic Medicine] - 1-2 days [facility] [NON-[facility]FF] - 1-2 days
[2019-03-07 21:42] VITALS: BP 136/72; PULSE 80; RESP 18; TEMP 98.6
== END 2019-03-07 21:46 | disposition home or self-care (01) ==
LOC: EC 18:59
DX: M54.16 Radiculopathy, lumbar region (principal); R05 Cough; F17.200 Nicotine dependence, unspecified, uncomplicated; Z88.1 Allergy status to other antibiotic agents
CPT/HCPCS: 99284; 96374; 96361; J2930

== ENCOUNTER → 2019-11-11 | Outpatient (CLI) | payer OTHER ==
[2019-11-11 14:01] LABS: Appearance,Urine Clear (Clear); Basophils # (A) 0.1 k/uL (0-0.2); Basophils % (A) 2 %; Bilirubin,Urine Negative (Negative); Blood,Urine Negative (Negative); Color,Urine Colorless; Eosinophils # (A) 0.1 k/uL (0-0.7); Eosinophils % (A) 1 %; Glucose,Urine (UA) Negative (Negative); HCT 45.9 % (34.0-46.0); HGB 14.6 gm/dL (11.4-16.0); Ketones,Urine Negative (Negative); Leukocyte Esterase,Urine Negative (Negative); Lymphocytes # (A) 2.7 k/uL (1.0-4.8); Lymphocytes % (A) 37 %; MCH 28.8 pg (25.0-35.0); MCHC 31.9 g/dL (31.0-37.0); MCV 90.3 fL (80.0-100.0); Mean Platelet Volume 8.9; Monocytes # (A) 0.3 k/uL (0-1.0); Monocytes % (A) 4 %; Neutrophils # (A) 3.9 k/uL (1.3-7.7); Neutrophils % (A) 54 %; Nitrite,Urine Negative (Negative); PH, Urine 6.5 (5.0-8.0); Platelet Count 280 k/uL (150-450); Protein,Urine Negative (Negative); RBC 5.08 m/uL (3.80-5.40); RDW 12.6 % (11.5-15.5); Specific Gravity,Urine 1.006 (1.001-1.035); Urobilinogen,Urine <2.0 mg/dL (<2.0); WBC 7.3 k/uL (3.8-10.6)
[2019-11-11 20:32] LABS: Hemoglobin A1C 5.4 % (4.0-6.0)
[2019-11-11 21:16] LABS: INR 1.04 (0.90-1.11); Partial Thromboplastin Time 31.1 sec (24.7-29.9); Prothrombin Time 11.1 sec (9.9-11.9)
[2019-11-11 23:22] LABS: African American GFR (CKD) 144.3 (60.0-200.0); Albumin 4.5 g/dL (3.80-4.90); Albumin/Globulin Ratio 1.88 (1.60-3.17); Anion Gap 10.9 mmol/L (4.00-12.00); Calcium 9.3 mg/dL (8.7-10.3); Carbon Dioxide 21.1 mmol/L (21.6-31.8); Globulin 2.4 g/dL (1.6-3.3); Non-African American GFR(CKD) 124.5 (60.0-200.0); Potassium 3.8 mmol/L (3.5-5.5); Total Bilirubin 0.3 mg/dL (0.2-1.2); Total Protein 6.9 g/dL (6.2-8.2)
== END | disposition home or self-care (01) ==
LOC: LABWHC1 12:10
DX: M47.896 Other spondylosis, lumbar region (principal)
CPT/HCPCS: 36415; 80053; 81003; 83036; 84134; 85025; 85610; 85730

== ENCOUNTER → 2020-02-05 | Outpatient (CLI) | payer OTHER ==
--- NOTE | 2020-02-05 14:01 | XR ---
Bilateral shoulders HISTORY: M 25.519, M 25.569 3 views of each shoulder are submitted Bone mineralization, joint spaces and alignment are maintained. No fracture or dislocation. IMPRESSION: Normal shoulders.
--- NOTE | 2020-02-05 14:04 | XR ---
Bilateral knees HISTORY: Pain and swelling 3 views of each knee submitted Correlation to prior exam 05/01/2013 Right knee shows a stable appearance, some lucencies present along the proximal tibia laterally which may be due to patient's remote fracture. No fracture or dislocation. Suprapatellar joint effusion is present bilaterally. Left knee show some marginal spurring medially. Joint space loss is present in the medial compartments. Bone mineralization is reduced. IMPRESSION: Question some mild osteoarthritic change. Decreased bone mineralization at additional fin dings above..
== END | disposition home or self-care (01) ==
LOC: RADXRMAIN 12:19
PROVIDERS: ATTEND Family Medicine
DX: M17.0 Bilateral primary osteoarthritis of knee (principal); M25.519 Pain in unspecified shoulder; M25.569 Pain in unspecified knee

== ENCOUNTER 2020-07-11 18:35 | Emergency (ER) | payer OTHER ==
[2020-07-11 18:44] VITALS: BP 121/78; TEMP 98.7
--- NOTE | 2020-07-11 19:28 | ED ---
URI HPI - General Chief Complaint: Upper Respiratory Infection Stated Complaint: passing out/fever/sob/vomiting Time Seen by Provider: 07/11/20 18:51 Source: patient Mode of arrival: wheelchair Limitations: no limitations - History of Present Illness Initial Comments: Criss is a 34-year-old female who presents to the emergency department today with complaint of shortness of breath, malaise, myalgias. Patient reports she believes she has COVID-19. She states she's been trying to deal with at home but today felt like she couldn't get enough air. Her to come to the ER for evaluation. Patient states that she had symptoms similar to this last year when she had pneumonia. - Related Data Home Medications Medication Instructions Recorded Confirmed Ibuprofen [Motrin Ib] 800 mg PO Q8H PRN 11/04/19 07/11/20 Fexofenadine/Pseudoephedrine 1 tab PO Q12H 07/11/20 07/11/20 [Shahida-D 12 Hour Tablet] Previous Rx's Medication Instructions Recorded Albuterol Inhaler [Ventolin Hfa 1 puff INHALATION Q4H PRN #1 puff 07/11/20 Inhaler] Dexamethasone [Decadron] 6 mg PO DAILY #5 tablet 07/11/20 Allergies Allergy/AdvReac Type Severity Reaction Status Date / Time ceftriaxone Allergy Rash/Hives Verified 07/11/20 19:13 Review of Systems ROS Statement: Those systems with pertinent positive or pertinent negative responses have been documented in the HPI. ROS Other: All systems not noted in ROS Statement are negative. Past Medical History Past Medical History: Musculoskeletal Disorder Additional Past Medical History / Comment(s): DDD, STATES HX OF BACK SURGERY WITH NUMBNESS RIGHT LEG, NOW HAS NUMBNESS LEFT LEG AND PAIN. History of Any Multi-Drug Resistant Organisms: None Reported Past Surgical History: Back Surgery, Cholecystectomy Additional Past Surgical History / Comment(s): 06/24/14 laminectomy and decompression L5-S1 and discectomy for decompression L5-S1, 05/06/14 EGD and colonoscopy ., Hx of Pain Clinic Procedures. Past Anesthesia/Blood Transfusion Reactions: Previous Problems w/ Anesthesia Additional Past Anesthesia/Blood Transfusion Reaction / Comment(s): severe headache post -op back surgery. Past Psychological History: No Psychological Hx Reported Smoking Status: Current every day smoker Past Alcohol Use History: Rare Past Drug Use History: None Reported - Past Family History Father Family Medical History: Coronary Artery Disease (CAD), Diabetes Mellitus, Myocardial Infarction (IN) Additional Family Medical History / Comment(s): Father had a IN at age 54yrs and all his brothers had IN's before age 50 yrs. DM2 Mother Family Medical History: Cancer, Congestive Heart Failure (CHF), COPD, Hyperlipidemia, Hypertension, Osteoarthritis (OA) Additional Family Medical History / Comment(s): lung and ovarian cancer General Exam - General Exam Comments Initial Comments: Physical Exam GENERAL: Patient is well-developed and well-nourished. Patient is nontoxic and well-hydrated and is in no distress. HENT: Normocephalic, Atraumatic. EYES: PERRL, EOMI PULMONARY: Unlabored respirations. CARDIOVASCULAR: RRR Warm and well perfused extremities ABDOMEN: Non-distended SKIN: No rashes or bruising : Deferred NEUROLOGIC: Alert and oriented Normal speech Normal gait MUSCULOSKELETAL: Moving all extremities with no apparent injury PSYCHIATRIC: No SI/HI Limitations: no limitations Course Vital Signs 07/11/20 07/11/20 18:38 20:27 Temperature 98.7 F Pulse Rate 71 62 Respiratory 18 16 Rate Blood Pressure 121/78 O2 Sat by Pulse 100 100 Oximetry Medical Decision Making - Medical Decision Making Patient was seen and evaluated history was obtained from patient this is a 34-year-old female no underlying cardiac or pulmonary disease presenting to the ER with 3-4 days COVID symptoms COVID nasal swab is positive chest x-rays negative for any acute pneumonia this Patient was afebrile and not tachycardic nor hypoxic while in the emergency Department, reported care measures for COVID was discussed with the patient Dose of Decadron was given in ER patient was discharged home with Decadron and albuterol Return parameters were discussed with the patient, patieint was discharged home in stable condition - Lab Data Lab Results 07/11/20 Range/Units 18:53 Coronavirus (PCR) Detected A (Not Detectd) Disposition Clinical Impression: COVID-19 Disposition: HOME SELF-CARE Condition: Stable Additional Instructions: Have COVID-19, you are contagious for as long as you are symptomatic I recommend symptomatic treatment with Tylenol and Motrin for fever, make sure drinking plenty of fluids and stay hydrated I recommended to purchase a pulse ox to monitor her oxygen level, return to the emergency department after oxygen is below 90% I recommend taking vitamin C, vitamin D3 and zinc to support your immune system Prescriptions: Dexamethasone [Decadron] 6 mg PO DAILY #5 tablet Albuterol Inhaler [Ventolin Hfa Inhaler] 1 puff INHALATION Q4H PRN #1 puff PRN Reason: Wheezing Is patient prescribed a controlled substance at d/c from ED?: No Referrals: Autumn Salomon MD [Medical Doctor] - 1-2 days
--- NOTE | 2020-07-11 19:53 | XR ---
EXAMINATION TYPE: XR chest 1V portable DATE OF EXAM: 07/11/2020 COMPARISON: 02/25/2019 HISTORY: Syncope. Fever. TECHNIQUE: FINDINGS: Heart and mediastinum are normal. Lungs are clear. Diaphragm is normal. Bony thorax appears normal. Pulmonary vascularity is normal. IMPRESSION: Normal chest. There is clearing of the right side pneumonia compared to old exam.
[2020-07-11 20:28] VITALS: PULSE 62; RESP 16
[2020-07-11] MEDS ORDERED: dexAMETHasone 2 MG TAB PO STA (20:43)
== END 2020-07-11 21:01 | disposition home or self-care (01) ==
LOC: EC 18:35
DX: U07.1 COVID-19 (principal); F17.200 Nicotine dependence, unspecified, uncomplicated; Z88.1 Allergy status to other antibiotic agents
CPT/HCPCS: 87635; 71045; 99285; J8540

== ENCOUNTER 2021-06-10 11:20 | Emergency (ER) | payer OTHER ==
[2021-06-10] MEDS ORDERED: SODIUM CHLORIDE 0.9% 1,000 ML IV ONE (12:45)
[2021-06-10 13:40] LABS: HGB 15.8 gm/dL (11.4-16.0); MCHC 34.3 g/dL (31.0-37.0); MCV 87.6 fL (80.0-100.0); Mean Platelet Volume 8.4; Platelet Count 245 k/uL (150-450); RBC 5.25 m/uL (3.80-5.40); RDW 13.7 % (11.5-15.5); WBC 7.7 k/uL (3.8-10.6)
[2021-06-10 13:48] LABS: ALT 27 U/L (4-34); African American GFR (CKD) >90 (>60 ml/min/1.73 sqM); Albumin 4.5 g/dL (3.5-5.0); Anion Gap 10 mmol/L; Blood Urea Nitrogen 10 mg/dL (7-17); Calcium 8.9 mg/dL (8.4-10.2); Carbon Dioxide 27 mmol/L (22-30); Chloride 99 mmol/L (98-107); Glucose 91 mg/dL (74-99); Non-African American GFR(CKD) >90 (>60 ml/min/1.73 sqM); Sodium 136 mmol/L (137-145); Total Protein 8.2 g/dL (6.3-8.2)
[2021-06-10 13:49] LABS: AST 49 U/L (14-36); Alkaline Phosphatase 108 U/L (38-126); Potassium 3.5 mmol/L (3.5-5.1)
[2021-06-10 14:04] LABS: Basophils # (M) 0.08 k/uL (0-0.2); Lymphocytes # (M) 2.54 k/uL (1.0-4.8); Monocytes # (M) 0.69 k/uL (0-1.0); Neutrophils # (M) 4.39 k/uL (1.3-7.7); Neutrophils % (M) 57 %; Nucleated Red Blood Cells 0 /100 WBC (0-0); Total Cells Counted 100
[2021-06-10 14:11] LABS: RBC Morphology Normal
--- NOTE | 2021-06-10 14:35 | XR ---
EXAMINATION TYPE: XR chest 2V DATE OF EXAM: 06/10/2021 COMPARISON: Chest x-ray July 11, 2020 HISTORY: Cough and difficulty in breathing. TECHNIQUE: Frontal and lateral views of the chest are obtained. FINDINGS: Overlying bra strap is present. There is no suspicious focal air space opacity, pleural ef fusion, or pneumothorax seen. The cardiac silhouette size remains within normal limits. The osseou s structures are intact. Cholecystectomy clips noted on lateral view. IMPRESSION: No acute cardiopulmonary process. No significant change from prior.
[2021-06-10] MEDS ORDERED: KETOROLAC 15 MG/ML 1 ML VIAL IVP STA (14:57)
--- NOTE | 2021-06-10 14:57 | ED ---
General Adult HPI - General Chief complaint: Upper Respiratory Infection Stated complaint: Cough/GAUTAM Time Seen by Provider: 06/10/21 12:33 Source: patient, RN notes reviewed, old records reviewed Mode of arrival: ambulatory Limitations: no limitations - History of Present Illness Initial comments: 35-year-old female presenting with cough, congestion, diarrhea. Symptoms 7 present for the past 2 weeks. She's also had some pain and fullness in her left ear. She reports that the cough is nonproductive. She states she's had multiple episodes of diarrhea when she eats anything. She states she previously had coronavirus. She has not had a measured fever. No dysuria. No abdominal pain. - Related Data Previous Rx's Medication Instructions Recorded Albuterol Inhaler [Ventolin Hfa 1 puff INHALATION RT-QID #8 gm 06/10/21 Inhaler] Azithromycin [Zithromax Z-pack] 0 mg PO DIRECTED #6 tab 06/10/21 methylPREDNISolone Dose Pack 4 mg PO DIRECTED #21 packet 06/10/21 [Medrol Dose Pack] Allergies Allergy/AdvReac Type Severity Reaction Status Date / Time ceftriaxone Allergy Rash/Hives Verified 06/10/21 13:54 Review of Systems ROS Statement: Those systems with pertinent positive or pertinent negative responses have been documented in the HPI. ROS Other: All systems not noted in ROS Statement are negative. Past Medical History Past Medical History: Musculoskeletal Disorder Additional Past Medical History / Comment(s): DDD, STATES HX OF BACK SURGERY WITH NUMBNESS RIGHT LEG, NOW HAS NUMBNESS LEFT LEG AND PAIN. History of Any Multi-Drug Resistant Organisms: None Reported Past Surgical History: Back Surgery, Cholecystectomy Additional Past Surgical History / Comment(s): 06/24/14 laminectomy and decompression L5-S1 and discectomy for decompression L5-S1, 05/06/14 EGD and colonoscopy ., Hx of Pain Clinic Procedures. Past Anesthesia/Blood Transfusion Reactions: Previous Problems w/ Anesthesia Additional Past Anesthesia/Blood Transfusion Reaction / Comment(s): severe headache post -op back surgery. Past Psychological History: No Psychological Hx Reported Smoking Status: Current every day smoker Past Alcohol Use History: Rare Past Drug Use History: None Reported - Past Family History Father Family Medical History: Coronary Artery Disease (CAD), Diabetes Mellitus, Myocardial Infarction (LA) Additional Family Medical History / Comment(s): Father had a LA at age 54yrs and all his brothers had LA's before age 50 yrs. DM2 Mother Family Medical History: Cancer, Congestive Heart Failure (CHF), COPD, Hyperlipidemia, Hypertension, Osteoarthritis (OA) Additional Family Medical History / Comment(s): lung and ovarian cancer General Exam Limitations: no limitations General appearance: alert, in no apparent distress Head exam: Present: atraumatic, normocephalic Eye exam: Present: normal appearance, PERRL ENT exam: Present: normal exam, mucous membranes moist. Absent: TM's normal bilaterally (The left external auditory canal has some erythema, there is some erythema to the TM bilaterally.) Respiratory exam: Present: normal lung sounds bilaterally, other (Bronchospastic cough). Absent: respiratory distress, wheezes, rales Cardiovascular Exam: Present: regular rate, normal rhythm GI/Abdominal exam: Present: soft. Absent: distended, tenderness Extremities exam: Present: normal inspection, normal capillary refill. Absent: pedal edema, calf tenderness Neurological exam: Present: alert, oriented X3, CN II-XII intact. Absent: motor sensory deficit Psychiatric exam: Present: normal affect, normal mood Skin exam: Present: warm, dry, intact. Absent: cyanosis, diaphoretic Course Vital Signs 06/10/21 11:28 Temperature 97.8 F Pulse Rate 108 H Respiratory 20 Rate Blood Pressure 114/86 O2 Sat by Pulse 98 Oximetry Medical Decision Making - Medical Decision Making 35-year-old female with complaints of both diarrhea, coughing congestion. Symptoms 7 present for approximately 2 weeks. She is afebrile. She has stable vitals. Chest x-ray is negative for large focal pneumonia. She has a normal CBC, normal CMP, negative influenza, negative coronavirus. Given the duration of symptoms I will initiate antibiotics and steroids. She should follow-up with her primary care physician. She should take Claritin as well. - Lab Data Result diagrams: 06/10/21 13:00 06/10/21 13:00 Lab Results 06/10/21 06/10/21 06/10/21 Range/Units 13:00 13:00 13:00 WBC 7.7 (3.8-10.6) k/uL RBC 5.25 (3.80-5.40) m/uL Hgb 15.8 (11.4-16.0) gm/dL Hct 46.0 (34.0-46.0) % MCV 87.6 (80.0-100.0) fL MCH 30.0 (25.0-35.0) pg MCHC 34.3 (31.0-37.0) g/dL RDW 13.7 (11.5-15.5) % Plt Count 245 (150-450) k/uL MPV 8.4 Neutrophils % (Manual) 57 % Lymphocytes % (Manual) 33 % Monocytes % (Manual) 9 % Basophils % (Manual) 1 % Neutrophils # (Manual) 4.39 (1.3-7.7) k/uL Lymphocytes # (Manual) 2.54 (1.0-4.8) k/uL Monocytes # (Manual) 0.69 (0-1.0) k/uL Basophils # (Manual) 0.08 (0-0.2) k/uL Nucleated RBCs 0 (0-0) /100 WBC Manual Slide Review Performed RBC Morphology Normal Sodium 136 L (137-145) mmol/L Potassium 3.5 (3.5-5.1) mmol/L Chloride 99 (98-107) mmol/L Carbon Dioxide 27 (22-30) mmol/L Anion Gap 10 mmol/L BUN 10 (7-17) mg/dL Creatinine 0.47 L (0.52-1.04) mg/dL Est GFR (CKD-EPI)AfAm >90 (>60 ml/min/1.73 sqM) Est GFR (CKD-EPI)NonAf >90 (>60 ml/min/1.73 sqM) Glucose 91 (74-99) mg/dL Calcium 8.9 (8.4-10.2) mg/dL Magnesium 2.0 (1.6-2.3) mg/dL Total Bilirubin 1.0 (0.2-1.3) mg/dL AST 49 H (14-36) U/L ALT 27 (4-34) U/L Alkaline Phosphatase 108 (38-126) U/L Total Protein 8.2 (6.3-8.2) g/dL Albumin 4.5 (3.5-5.0) g/dL Coronavirus (PCR) (Not Detectd) Influenza Type A RNA Not Detected (Not Detectd) Influenza Type B (PCR) Not Detected (Not Detectd) 06/10/21 Range/Units 13:00 WBC (3.8-10.6) k/uL RBC (3.80-5.40) m/uL Hgb (11.4-16.0) gm/dL Hct (34.0-46.0) % MCV (80.0-100.0) fL MCH (25.0-35.0) pg MCHC (31.0-37.0) g/dL RDW (11.5-15.5) % Plt Count (150-450) k/uL MPV Neutrophils % (Manual) % Lymphocytes % (Manual) % Monocytes % (Manual) % Basophils % (Manual) % Neutrophils # (Manual) (1.3-7.7) k/uL Lymphocytes # (Manual) (1.0-4.8) k/uL Monocytes # (Manual) (0-1.0) k/uL Basophils # (Manual) (0-0.2) k/uL Nucleated RBCs (0-0) /100 WBC Manual Slide Review RBC Morphology Sodium (137-145) mmol/L Potassium (3.5-5.1) mmol/L Chloride (98-107) mmol/L Carbon Dioxide (22-30) mmol/L Anion Gap mmol/L BUN (7-17) mg/dL Creatinine (0.52-1.04) mg/dL Est GFR (CKD-EPI)AfAm (>60 ml/min/1.73 sqM) Est GFR (CKD-EPI)NonAf (>60 ml/min/1.73 sqM) Glucose (74-99) mg/dL Calcium (8.4-10.2) mg/dL Magnesium (1.6-2.3) mg/dL Total Bilirubin (0.2-1.3) mg/dL AST (14-36) U/L ALT (4-34) U/L Alkaline Phosphatase (38-126) U/L Total Protein (6.3-8.2) g/dL Albumin (3.5-5.0) g/dL Coronavirus (PCR) Not Detected (Not Detectd) Influenza Type A RNA (Not Detectd) Influenza Type B (PCR) (Not Detectd) Disposition Clinical Impression: Acute upper respiratory infection Disposition: HOME SELF-CARE Condition: Fair Instructions (If sedation given, give patient instructions): Upper Respiratory Infection (ED) Prescriptions: methylPREDNISolone Dose Pack [Medrol Dose Pack] 4 mg PO DIRECTED #21 packet Albuterol Inhaler [Ventolin Hfa Inhaler] 1 puff INHALATION RT-QID #8 gm Azithromycin [Zithromax Z-pack] 0 mg PO DIRECTED #6 tab Is patient prescribed a controlled substance at d/c from ED?: No Referrals: Efraín Nguyen MD [Primary Care Provider] - 1-2 days Time of Disposition: 14:54
[2021-06-10 15:13] VITALS: BP 125/86; PULSE 91; RESP 16; TEMP 98.4
== END 2021-06-10 15:25 | disposition home or self-care (01) ==
LOC: EC 11:20
DX: J06.9 Acute upper respiratory infection, unspecified (principal); F17.200 Nicotine dependence, unspecified, uncomplicated; Z20.822 Contact with and (suspected) exposure to COVID-19; Z88.1 Allergy status to other antibiotic agents
CPT/HCPCS: 36415; 80053; 83735; 85025; 87502; 87635; 71046; 99284; 96374; 96361; J1885

== ENCOUNTER 2024-04-22 16:28 | Emergency (ER) | payer OTHER ==
[2024-04-22 16:40] VITALS: RESP 20
--- NOTE | 2024-04-22 16:45 | ED ---
URI HPI - General Chief Complaint: Upper Respiratory Infection Stated Complaint: Cough,Headache Time Seen by Provider: 04/22/24 16:45 Source: patient Mode of arrival: ambulatory Limitations: no limitations - History of Present Illness Initial Comments: 46-year-old female presenting with chief complaint of URI-like symptoms. She is having cough congestion headache and bodyaches ongoing for several days. No fever. No nausea vomiting diarrhea or abdominal pain. No chest pain or difficulty breathing. Her mother is sick with similar symptoms as well. She states that she had the symptoms a few days ago when she thought she was getting better but last night she started feeling worse again. - Related Data Previous Rx's Medication Instructions Recorded Albuterol Inhaler [Ventolin Hfa 1 puff INHALATION RT-QID #8 gm 06/10/21 Inhaler] Azithromycin [Zithromax Z-pack] 0 mg PO DIRECTED #6 tab 06/10/21 methylPREDNISolone Dose Pack 4 mg PO DIRECTED #21 packet 06/10/21 [Medrol Dose Pack] Allergies Allergy/AdvReac Type Severity Reaction Status Date / Time ceftriaxone Allergy Rash/Hives Verified 04/22/24 16:40 Review of Systems ROS Statement: Those systems with pertinent positive or pertinent negative responses have been documented in the HPI. ROS Other: All systems not noted in ROS Statement are negative. Past Medical History Past Medical History: Musculoskeletal Disorder Additional Past Medical History / Comment(s): DDD, STATES HX OF BACK SURGERY WITH NUMBNESS RIGHT LEG, NOW HAS NUMBNESS LEFT LEG AND PAIN. History of Any Multi-Drug Resistant Organisms: None Reported Past Surgical History: Back Surgery, Cholecystectomy Additional Past Surgical History / Comment(s): 06/24/14 laminectomy and decompression L5-S1 and discectomy for decompression L5-S1, 05/06/14 EGD and colonoscopy ., Hx of Pain Clinic Procedures. Past Anesthesia/Blood Transfusion Reactions: Previous Problems w/ Anesthesia Additional Past Anesthesia/Blood Transfusion Reaction / Comment(s): severe headache post -op back surgery. Past Psychological History: No Psychological Hx Reported Smoking Status: Current every day smoker Past Alcohol Use History: Rare Past Drug Use History: None Reported - Past Family History Father Family Medical History: Coronary Artery Disease (CAD), Diabetes Mellitus, Myocardial Infarction (MS) Additional Family Medical History / Comment(s): Father had a MS at age 54yrs and all his brothers had MS's before age 50 yrs. DM2 Mother Family Medical History: Cancer, Congestive Heart Failure (CHF), COPD, Hyperlipidemia, Hypertension, Osteoarthritis (OA) Additional Family Medical History / Comment(s): lung and ovarian cancer General Exam - General Exam Comments Initial Comments: Visual Physical Exam Vital signs reviewed General: Well-appearing, nontoxic, no acute distress. Head: Normocephalic, atraumatic Eyes: PERRLA, EOMI ENT: Airway patent Chest: Nonlabored breathing Skin: No visual rash, normal skin tone Neuro: Alert and oriented 3 Musculoskeletal: No gross abnormalities Limitations: no limitations General appearance: alert, in no apparent distress Head exam: Present: atraumatic, normocephalic, normal inspection Eye exam: Present: normal appearance, EOMI Neck exam: Present: normal inspection. Absent: meningismus Respiratory exam: Present: normal lung sounds bilaterally. Absent: respiratory distress, wheezes, rales, rhonchi, stridor Cardiovascular Exam: Present: regular rate, normal rhythm, normal heart sounds. Absent: systolic murmur, diastolic murmur, rubs, gallop, clicks Neurological exam: Present: alert, oriented X3 Psychiatric exam: Present: normal affect, normal mood Skin exam: Present: warm, dry Course Vital Signs 04/22/24 04/22/24 16:38 19:04 Temperature 98.5 F 98.4 F Pulse Rate 87 82 Respiratory 20 20 Rate Blood Pressure 149/103 130/87 O2 Sat by Pulse 97 97 Oximetry Medical Decision Making - Medical Decision Making I performed the quick note portion of this visit, electronically signed Eliud Disla PA-C Was pt. sent in by a medical professional or institution ([facility], [employer], urgent care, hospital, or long term...) When possible be specific @ -No Did you speak to anyone other than the patient for history (EMS, parent, family, police, friend...)? What history was obtained from this source @ -No Did you review nursing and triage notes (agree or disagree)? Why? @ -I reviewed and agree with nursing and triage notes Were old charts reviewed (outside hosp., previous admission, EMS record, old EKG, old radiological studies, urgent care reports/EKG's, long term records)? Report findings @ -No old charts were reviewed Differential Diagnosis (chest pain, altered mental status, abdominal pain women, abdominal pain men, vaginal bleeding, weakness, fever, dyspnea, syncope, headache, dizziness, GI bleed, back pain, seizure, CVA, palpatations, mental health, musculoskeletal)? @ -Differential includes influenza, RSV, COVID, pneumonia, bronchitis, not an all-inclusive list EKG interpreted by me (3pts min.). @ -As above X-rays interpreted by me (1pt min.). @ -Chest x-ray shows no acute process CT interpreted by me (1pt min.). @ -None done U/S interpreted by me (1pt. min.). @ -None done What testing was considered but not performed or refused? (CT, X-rays, U/S, labs)? Why? @ -None What meds were considered but not given or refused? Why? @ -None Did you discuss the management of the patient with other professionals (professionals i.e. , PA, [employer], lab, RT, psych nurse, social work faculty member, dishwasher preparer, teacher, chief diversity officer, pillowcase cleaner)? Give summary @ -No Was smoking cessation discussed for >3mins.? @ -No Was critical care preformed (if so, how long)? @ -No Were there social determinants of health that impacted care today? How? (Homelessness, low income, unemployed, alcoholism, drug addiction, transportation, low edu. Level, literacy, decrease access to med. care, long-term, rehab)? @ -No Was there de-escalation of care discussed even if they declined (Discuss DNR or withdrawal of care, Hospice)? DNR status @ -No What co-morbidities impacted this encounter? (DM, HTN, Smoking, COPD, CAD, Cancer, CVA, ARF, Chemo, Hep., AIDS, mental health diagnosis, sleep apnea, morbid obesity)? @ -None Was patient admitted / discharged? Hospital course, mention meds given and route, prescriptions, significant lab abnormalities, going to OR and other pertinent info. @ -38-year-old female presenting with chief complaint of URI-like symptoms. Workup is initiated by triage. She is positive for COVID. Chest x-ray shows no acute process. Vital signs are stable. Patient is later placed in room and evaluated by myself. She is educated on today's findings and supportive management at home. Follow-up with PCP. Report back to ER with any new or worsening symptoms. Discussed return parameters and answered all questions. Patient conveyed verbal understanding and agreed to the plan. I discussed this case in detail with my attending Dr. Bhakta Undiagnosed new problem with uncertain prognosis? @ -No Drug Therapy requiring intensive monitoring for toxicity (Heparin, Nitro, Insulin, Cardizem)? @ -No Were any procedures done? @ -No Diagnosis/symptom? @ -COVID-19 Acute, or Chronic, or Acute on Chronic? @ -Acute Uncomplicated (without systemic symptoms) or Complicated (systemic symptoms)? @ -Uncomplicated Side effects of treatment? @ -No Exacerbation, Progression, or Severe Exacerbation? @ -No Poses a threat to life or bodily function? How? (Chest pain, USA, MS, pneumonia, PE, COPD, DKA, ARF, appy, cholecystitis, CVA, Diverticulitis, Homicidal, Suicidal, threat to staff... and all critical care pts) @ -Unlikely - Lab Data Lab Results 04/22/24 Range/Units 16:41 Influenza Type A (PCR) Not Detected (Not Detectd) Influenza Type B (PCR) Not Detected (Not Detectd) RSV (PCR) Not Detected (Not Detectd) SARS-CoV-2 (PCR) Detected A (Not Detectd) Disposition Clinical Impression: COVID-19 Disposition: HOME SELF-CARE Condition: Good Instructions (If sedation given, give patient instructions): COVID-19 (Coronavirus Disease 2019) (ED) Additional Instructions: Follow-up with PCP. Report back to ER with any new or worsening symptoms. Is patient prescribed a controlled substance at d/c from ED?: No Referrals: Efraín Nguyen DO [REFERRING] - 1-2 days Time of Disposition: 18:53
[2024-04-22 17:28] LABS: Influenza A Not Detected (Not Detectd); Influenza B Not Detected (Not Detectd); RSV Not Detected (Not Detectd)
--- NOTE | 2024-04-22 17:54 | XR ---
EXAMINATION TYPE: XR chest 2V DATE OF EXAM: 04/22/2024 5:25 PM COMPARISON: 06/10/2021 CLINICAL INDICATION: Female, 38 years old with history of cough, URI symptoms x1 week TECHNIQUE: XR chest 2V view(s) obtained. FINDINGS: The heart size is normal. The pulmonary vasculature is normal. The lungs are clear. IMPRESSION: 1. No acute pulmonary process. [facility], Workstation: [facility], 04/22/2024 5:51 PM
[2024-04-22 19:06] VITALS: BP 130/87; PULSE 82; TEMP 98.4
== END 2024-04-22 19:21 | disposition home or self-care (01) ==
LOC: EC 16:28
DX: U07.1 COVID-19 (principal); F17.200 Nicotine dependence, unspecified, uncomplicated; Z88.1 Allergy status to other antibiotic agents
CPT/HCPCS: 71046; 87636; 99284

== ENCOUNTER → 2024-09-12 | Outpatient (CLI) | payer BC | END | disposition home or self-care (01) | LOC: LABWHC1 11:52 | PROVIDERS: ATTEND Obstetrics & Gynecology | DX: O20.0 Threatened abortion (principal); Z3A.00 Weeks of gestation of pregnancy not specified | CPT/HCPCS: 36415; 84702; 86850; 86900; 86901 ==

== ENCOUNTER 2024-09-16 21:40 | Emergency (ER) | payer BC ==
[2024-09-16 21:48] VITALS: RESP 18; TEMP 97.8
--- NOTE | 2024-09-16 23:20 | ED ---
General Adult HPI <Alexandro Sterling - Last Filed: 09/17/24 04:21> - General Source: patient, RN notes reviewed Mode of arrival: ambulatory Limitations: no limitations <Monae Roth - Last Filed: 09/18/24 02:22> - General Chief complaint: Vaginal Bleeding Stated complaint: Miscarriage-Abd Pain Time Seen by Provider: 09/16/24 22:43 - History of Present Illness Initial comments: 39-year-old G2, P1 female presents to the emergency department for vaginal bleeding. Patient reports that she has been told that she is having a miscarriage. She has been following with her [employer]. She is scheduled for a D&C on . She notes that this evening she started having worsening bleeding and cramping. She notes that the bleeding is similar to a heavy period. Denies any recent fever. Denies any urinary symptoms. (Monae Roth) - Related Data Home Medications Medication Instructions Recorded Confirmed No Known Home Medications 09/15/24 09/15/24 Allergies Allergy/AdvReac Type Severity Reaction Status Date / Time ceftriaxone Allergy Rash/Hives Verified 09/16/24 21:44 Review of Systems ROS Other: All systems not noted in ROS Statement are negative. <Alexandro Sterling - Last Filed: 09/17/24 04:21> ROS Other: All systems not noted in ROS Statement are negative. <Monae Roth - Last Filed: 09/18/24 02:22> ROS Statement: Those systems with pertinent positive or pertinent negative responses have been documented in the HPI. Past Medical History Past Medical History: Musculoskeletal Disorder Additional Past Medical History / Comment(s): DDD, NUMBNESS BILATERAL LEGS AND PAIN SINCE BACK SURGERY History of Any Multi-Drug Resistant Organisms: None Reported Past Surgical History: Back Surgery, Cholecystectomy Additional Past Surgical History / Comment(s): BACK SURGERY X2 (DISCECTOMY), EGD and colonoscopy Past Anesthesia/Blood Transfusion Reactions: Previous Problems w/ Anesthesia Additional Past Anesthesia/Blood Transfusion Reaction / Comment(s): severe headache post -op back surgery. Past Psychological History: No Psychological Hx Reported Smoking Status: Current every day smoker Past Alcohol Use History: None Reported Past Drug Use History: None Reported - Past Family History Father Family Medical History: Coronary Artery Disease (CAD), Diabetes Mellitus, Myocardial Infarction (NM) Additional Family Medical History / Comment(s): Father had a NM at age 54yrs and all his brothers had NM's before age 50 yrs. DM2 Mother Family Medical History: Cancer, Congestive Heart Failure (CHF), COPD, Hyperlipidemia, Hypertension, Osteoarthritis (OA) Additional Family Medical History / Comment(s): lung and ovarian cancer <Monae Roth - Last Filed: 09/18/24 02:22> General Exam Limitations: no limitations General appearance: alert, in no apparent distress Head exam: Present: atraumatic, normocephalic, normal inspection Eye exam: Present: normal appearance, PERRL, EOMI. Absent: scleral icterus, conjunctival injection, periorbital swelling ENT exam: Present: normal exam, mucous membranes moist Neck exam: Present: normal inspection. Absent: tenderness, meningismus, lymphadenopathy Respiratory exam: Present: normal lung sounds bilaterally. Absent: respiratory distress, wheezes, rales, rhonchi, stridor Cardiovascular Exam: Present: regular rate, normal rhythm, normal heart sounds. Absent: systolic murmur, diastolic murmur, rubs, gallop, clicks GI/Abdominal exam: Present: soft, normal bowel sounds. Absent: distended, tenderness, guarding, rebound, rigid External exam: Present: normal external exam Speculum exam: Present: vaginal bleeding Extremities exam: Present: normal inspection, full ROM, normal capillary refill. Absent: tenderness, pedal edema, joint swelling, calf tenderness Neurological exam: Present: alert, oriented X3 Psychiatric exam: Present: normal affect, normal mood Skin exam: Present: warm, dry, intact, normal color. Absent: rash <Monae Roth - Last Filed: 09/18/24 02:22> Course Vital Signs 09/16/24 09/17/24 21:44 04:45 Temperature 97.8 F 97.8 F Pulse Rate 89 76 Respiratory 18 18 Rate Blood Pressure 125/85 106/75 O2 Sat by Pulse 96 98 Oximetry Medical Decision Making - Lab Data Result diagrams: 09/17/24 00:33 09/17/24 00:33 <Alexandro Sterling Last Filed: 09/17/24 04:21> - Lab Data Result diagrams: 09/17/24 00:33 09/17/24 00:33 <Monae Roth Filed: 09/18/24 02:22> - Medical Decision Making Was pt. sent in by a medical professional or institution (, KARUNA, PUBLIC SERVICE DIRECTOR, urgent care, hospital, or alf...) When possible be specific @ -No Did you speak to anyone other than the patient for history (EMS, parent, family, police, friend...)? What history was obtained from this source @ -No Did you review nursing and triage notes (agree or disagree)? Why? @ -I reviewed and agree with nursing and triage notes Were old charts reviewed (outside hosp., previous admission, EMS record, old EKG, old radiological studies, urgent care reports/EKG's, alf records)? Report findings @ -No old charts were reviewed Differential Diagnosis (chest pain, altered mental status, abdominal pain women, abdominal pain men, vaginal bleeding, weakness, fever, dyspnea, syncope, hea dache, dizziness, GI bleed, back pain, seizure, CVA, palpatations, mental health, musculoskeletal)? @ -Differential Vaginal Bleeding: Spontaneous , threatened , molar , ectopic , bloody show, incompetent cervix, abruptioplacenta, placenta previa, uterine rupture, dysfunctional uterine bleeding, hemorrhage, uterine fibroids, this is not meant to be an all-inclusive list. ] EKG interpreted by me (3pts min.). @ -None X-rays interpreted by me (1pt min.). @ -None done CT interpreted by me (1pt min.). @ -None done U/S interpreted by me (1pt. min.). @ -[Ultrasound pending What testing was considered but not performed or refused? (CT, X-rays, U/S, l abs)? Why? @ -None What meds were considered but not given or refused? Why? @ -None Did you discuss the management of the patient with other professionals (professionals i.e. KARUNA Gallardo, PUBLIC SERVICE DIRECTOR, lab, RT, psych nurse, older adult social work specialist, medical staff assistant, teacher, community relations officer, leather case finisher)? Give summary @ -No Was smoking cessation discussed for >3mins.? @ -No Was critical care preformed (if so, how long)? @ -No Were there social determinants of health that impacted care today? How? (Homelessness, low income, unemployed, alcoholism, drug addiction, transportation, low edu. Level, literacy, decrease access to med. care, fpc, rehab)? @ -No Was there de-escalation of care discussed even if they declined (Discuss DNR or withdrawal of care, Hospice)? DNR status @ -No What co-morbidities impacted this encounter? (DM, HTN, Smoking, COPD, CAD, Cancer, CVA, ARF, Chemo, Hep., AIDS, mental health diagnosis, sleep apnea, morbid obesity)? @ -None Was patient admitted / discharged? Hospital course, mention meds given and route, prescriptions, significant lab abnormalities, going to OR and other pertinent info. @ -Patient presented emergency department for evaluation of abdominal cramping and vaginal bleeding. Patient reports that she is advised by her OB that she is having a miscarriage. Laboratory studies obtained todayRevealing no significant leukocytosis, hemoglobin stable at 13.9; normal relation studies; CMP is nonactionable, quantitative hCG has significantly decreased from prior at 5705 prior study was 12,675 on 12 September. UA reveals large blood, greater than 182 RBCs vaginal in origin. Case signed out to Dr. Sterling pending pelvic ultrasound] Undiagnosed new problem with uncertain prognosis? @ -No Drug Therapy requiring intensive monitoring for toxicity (Heparin, Nitro, Insulin, Cardizem)? @ -No Were any procedures done? @ -No Diagnosis/symptom? @ -Default Acute, or Chronic, or Acute on Chronic? @ -Default Uncomplicated (without systemic symptoms) or Complicated (systemic symptoms)? @ -Default Side effects of treatment? @ -No Exacerbation, Progression, or Severe Exacerbation? @ -No Poses a threat to life or bodily function? How? (Chest pain, USA, NM, pneumonia, PE, COPD, DKA, ARF, appy, cholecystitis, CVA, Diverticulitis, Homicidal, Suicidal, threat to staff... and all critical care pts) @ -No (Monae Roth) - Lab Data Lab Results 09/17/24 09/17/24 09/17/24 Range/Units 00:33 00:33 00:33 WBC 9.61 (4.50-10.00) 10*3/uL RBC 4.52 (4.10-5.20) 10*6/uL Hgb 13.9 (12.0-15.0) g/dL Hct 40.1 (37.2-46.3) % MCV 88.7 (80.0-97.0) fL MCH 30.8 (27.0-32.0) pg MCHC 34.7 (32.0-37.0) g/dL Plt Count 273 (140-440) 10*3/uL MPV 10.8 (9.5-12.2) fL Immature Gran % (Auto) 0.1 % Neutrophils % 57.5 % Lymphocytes % 32.9 % Monocytes % 5.7 % Eosinophils % 2.4 % Basophils % 1.4 % Immature Gran # 0.01 (0.00-0.04) 10*3/uL Neutrophils # 5.53 (1.80-7.70) 10*3/uL Lymphocytes # 3.16 (0.90-5.00) 10*3/uL Monocytes # 0.55 (0.20-1.00) 10*3/uL Eosinophils # 0.23 (0.04-0.35) 10*3/uL Basophils # 0.13 H (0.00-0.10) 10*3/uL PT 10.7 (10.0-12.5) sec INR 1.0 (<1.2) APTT 24.3 (22.0-30.0) sec Sodium (137-145) mmol/L Potassium (3.5-5.1) mmol/L Chloride (98-107) mmol/L Carbon Dioxide (22-30) mmol/L Anion Gap mmol/L BUN (7-17) mg/dL Creatinine (0.52-1.04) mg/dL Est GFR (CKD-EPI)AfAm (>60 ml/min/1.73 sqM) Est GFR (CKD-EPI)NonAf (>60 ml/min/1.73 sqM) Glucose (74-99) mg/dL Calcium (8.4-10.2) mg/dL Total Bilirubin (0.2-1.3) mg/dL AST (14-36) U/L ALT (4-34) U/L Alkaline Phosphatase (38-126) U/L Total Protein (6.3-8.2) g/dL Albumin (3.5-5.0) g/dL HCG, Quant mIU/mL Urine Color Dark Red Urine Appearance Turbid H (Clear) Urine pH 5.5 (5.0-8.0) Ur Specific Martin 1.015 (1.001-1.035) Urine Protein 2+ H (Negative) Urine Glucose (UA) Negative (Negative) Urine Ketones Negative (Negative) Urine Blood Large H (Negative) Urine Nitrite Negative (Negative) Urine Bilirubin Negative (Negative) Urine Urobilinogen <2.0 (<2.0) mg/dL Ur Leukocyte Esterase Moderate H (Negative) Urine RBC >182 H (0-5) /hpf Urine WBC 54 H (0-5) /hpf Ur Squamous Epith Cells 14 H (0-4) /hpf Hyaline Casts 31 H (0-2) /lpf Blood Type Blood Type Recheck Bld Type Recheck Status 09/17/24 09/17/24 Range/Units 00:33 00:33 WBC (4.50-10.00) 10*3/uL RBC (4.10-5.20) 10*6/uL Hgb (12.0-15.0) g/dL Hct (37.2-46.3) % MCV (80.0-97.0) fL MCH (27.0-32.0) pg MCHC (32.0-37.0) g/dL Plt Count (140-440) 10*3/uL MPV (9.5-12.2) fL Immature Gran % (Auto) % Neutrophils % % Lymphocytes % % Monocytes % % Eosinophils % % Basophils % % Immature Gran # (0.00-0.04) 10*3/uL Neutrophils # (1.80-7.70) 10*3/uL Lymphocytes # (0.90-5.00) 10*3/uL Monocytes # (0.20-1.00) 10*3/uL Eosinophils # (0.04-0.35) 10*3/uL Basophils # (0.00-0.10) 10*3/uL PT (10.0-12.5) sec INR (<1.2) APTT (22.0-30.0) sec Sodium 135 L (137-145) mmol/L Potassium 4.1 (3.5-5.1) mmol/L Chloride 103 (98-107) mmol/L Carbon Dioxide 23 (22-30) mmol/L Anion Gap 9 mmol/L BUN 5 L (7-17) mg/dL Creatinine 0.40 L (0.52-1.04) mg/dL Est GFR (CKD-EPI)AfAm >90 (>60 ml/min/1.73 sqM) Est GFR (CKD-EPI)NonAf >90 (>60 ml/min/1.73 sqM) Glucose 84 (74-99) mg/dL Calcium 9.6 (8.4-10.2) mg/dL Total Bilirubin 0.6 (0.2-1.3) mg/dL AST 25 (14-36) U/L ALT 11 (4-34) U/L Alkaline Phosphatase 61 (38-126) U/L Total Protein 7.0 (6.3-8.2) g/dL Albumin 4.1 (3.5-5.0) g/dL HCG, Quant 5705.9 mIU/mL Urine Color Urine Appearance (Clear) Urine pH (5.0-8.0) Ur Specific Martin (1.001-1.035) Urine Protein (Negative) Urine Glucose (UA) (Negative) Urine Ketones (Negative) Urine Blood (Negative) Urine Nitrite (Negative) Urine Bilirubin (Negative) Urine Urobilinogen (<2.0) mg/dL Ur Leukocyte Esterase (Negative) Urine RBC (0-5) /hpf Urine WBC (0-5) /hpf Ur Squamous Epith Cells (0-4) /hpf Hyaline Casts (0-2) /lpf Blood Type A Negative Blood Type Recheck A Neg Bld Type Recheck Status No Disposition Is patient prescribed a controlled substance at d/c from ED?: No Time of Disposition: 04:20 <Alexandro Sterling - Last Filed: 09/17/24 04:21> <Monae Roth - Last Filed: 09/18/24 02:22> Clinical Impression: Incomplete , Missed , Nausea & vomiting Disposition: HOME SELF-CARE Condition: Fair Instructions (If sedation given, give patient instructions): Miscarriage (ED) Referrals: Efraín Nguyen DO [Primary Care Provider] - 1-2 days
[2024-09-17] MEDS: MORPHINE SULFATE 4 MG/ML SYRINGE IVP STA (00:42)
[2024-09-17] MEDS: SODIUM CHLORIDE 0.9% 1,000 ML IV ONE (00:43)
[2024-09-17 00:47] LABS: Basophils # (A) 0.13 10*3/uL (0.00-0.10); Basophils % (A) 1.4 %; Eosinophils # (A) 0.23 10*3/uL (0.04-0.35); Eosinophils % (A) 2.4 %; HCT 40.1 % (37.2-46.3); HGB 13.9 g/dL (12.0-15.0); Lymphocytes # (A) 3.16 10*3/uL (0.90-5.00); Lymphocytes % (A) 32.9 %; MCH 30.8 pg (27.0-32.0); MCHC 34.7 g/dL (32.0-37.0); MCV 88.7 fL (80.0-97.0); Mean Platelet Volume 10.8 fL (9.5-12.2); Monocytes # (A) 0.55 10*3/uL (0.20-1.00); Monocytes % (A) 5.7 %; Neutrophils # (A) 5.53 10*3/uL (1.80-7.70); Neutrophils % (A) 57.5 %; Platelet Count 273 10*3/uL (140-440); RBC 4.52 10*6/uL (4.10-5.20); RDW 12.8 % (11.5-14.5); WBC 9.61 10*3/uL (4.50-10.00)
[2024-09-17 01:03] LABS: Partial Thromboplastin Time 24.3 sec (22.0-30.0); Prothrombin Time 10.7 sec (10.0-12.5)
[2024-09-17 01:10] LABS: ALT 11 U/L (4-34); African American GFR (CKD) >90 (>60 ml/min/1.73 sqM); Albumin 4.1 g/dL (3.5-5.0); Anion Gap 9 mmol/L; Blood Urea Nitrogen 5 mg/dL (7-17); Calcium 9.6 mg/dL (8.4-10.2); Carbon Dioxide 23 mmol/L (22-30); Chloride 103 mmol/L (98-107); Glucose 84 mg/dL (74-99); Non-African American GFR(CKD) >90 (>60 ml/min/1.73 sqM); Sodium 135 mmol/L (137-145); Total Bilirubin 0.6 mg/dL (0.2-1.3)
[2024-09-17 01:19] LABS: Potassium 4.1 mmol/L (3.5-5.1)
[2024-09-17 01:20] LABS: AST 25 U/L (14-36); Alkaline Phosphatase 61 U/L (38-126)
[2024-09-17 01:26] LABS: HCG,Quantitative Serum 5705.9 mIU/mL
[2024-09-17 01:39] LABS: Appearance,Urine Turbid (Clear); Bilirubin,Urine Negative (Negative); Blood,Urine Large (Negative); Color,Urine Dark Red; Glucose,Urine (UA) Negative (Negative); Hyaline Casts,Urine 31 /lpf (0-2); Ketones,Urine Negative (Negative); Leukocyte Esterase,Urine Moderate (Negative); Nitrite,Urine Negative (Negative); PH, Urine 5.5 (5.0-8.0); Protein,Urine 2+ (Negative); RBC,Urine >182 /hpf (0-5); Squamous Epithelial Cell,Urine 14 /hpf (0-4); Urobilinogen,Urine <2.0 mg/dL (<2.0); WBC,Urine 54 /hpf (0-5)
[2024-09-17 01:43] LABS: Specific Gravity,Urine 1.015 (1.001-1.035)
[2024-09-17] MEDS: MORPHINE SULFATE 2 MG/ML SYRINGE IVP ONE (04:02)
--- NOTE | 2024-09-17 04:04 | US ---
EXAM: US Pelvis Transabdominal and Transvaginal, Complete CLINICAL HISTORY: Bleeding and cramping TECHNIQUE: Real-time complete transabdominal and transvaginal pelvic ultrasound with image documentation. Transvaginal imaging was used for better evaluation of the endometrium and adnexa. COMPARISON: No relevant prior studies available. FINDINGS: Uterus/cervix: The uterus measures 9.2 x 4.6 x 3.9 cm. A gestational sac is present with the mean sac diameter measuring 2.4 cm. The yolk sac is abnormally enlarged measuring 1.3 cm without pole. Right ovary: The right ovary measures 2.6 x 1.8 x 1.7 cm. Normal blood flow. Left ovary: The left ovary measures 2.8 x 1.6 x 2.3 cm. Normal blood flow. Free fluid: No free fluid. Bladder: Unremarkable as visualized. Wall is normal thickness for degree of distention. IMPRESSION: A gestational sac is present with the mean sac diameter measuring 2.4 cm. The yolk sac is abnormally enlarged measuring 1.3 cm without pole. These findings are concerning for loss. Recommend follow-up ultrasound in 7-10 days to assess viability.
[2024-09-17 04:53] VITALS: BP 106/75; PULSE 76
== END 2024-09-17 04:53 | disposition home or self-care (01) ==
LOC: EC 21:40
DX: O09.90 Supervision of high risk pregnancy, unspecified, unspecified trimester (principal); O03.4 Incomplete spontaneous abortion without complication; O99.330 Smoking (tobacco) complicating pregnancy, unspecified trimester; F17.200 Nicotine dependence, unspecified, uncomplicated; Z88.1 Allergy status to other antibiotic agents; Z3A.00 Weeks of gestation of pregnancy not specified
CPT/HCPCS: 36415; 86900; 86901; 80053; 85025; 85610; 85730; 81001; 84702; 87086; 76801; 76817; 99284; 96374; 96376; 96361; J2270 ×2

== ENCOUNTER → 2024-09-16 | Outpatient (CLI) | payer BC ==
[2024-09-16 15:06] LABS: Basophils # (A) 0.09 X 10*3/uL (0.00-0.10); Eosinophils # (A) 0.07 X 10*3/uL (0.04-0.35); Eosinophils % (A) 0.8 %; HCT 42.9 % (37.2-46.3); Lymphocytes # (A) 2.46 X 10*3/uL (0.90-5.00); Lymphocytes % (A) 28.1 %; MCH 29.6 pg (27.0-32.0); MCHC 32.6 g/dL (32.0-37.0); MCV 90.7 FL (80.0-97.0); Mean Platelet Volume 11.6 FL (9.5-12.2); Monocytes # (A) 0.43 X 10*3/uL (0.20-1.00); Monocytes % (A) 4.9 %; NRBC Per 100 WBC 0 X 10*3/uL (0.00-0.01); Neutrophils # (A) 5.66 X 10*3/uL (1.80-7.70); Neutrophils % (A) 64.9 %; Platelet Count 277 X 10*3/uL (140-440); RBC 4.73 X 10*6/uL (4.10-5.20); RDW 12.8 % (11.5-14.5); WBC 8.74 X 10*3/uL (4.50-10.00)
== END | disposition home or self-care (01) ==
LOC: LABPAT 10:40
PROVIDERS: ATTEND Obstetrics & Gynecology
DX: Z01.812 Encounter for preprocedural laboratory examination (principal); O02.1 Missed abortion
CPT/HCPCS: 85025; 86850; 86900; 86901

== ENCOUNTER 2024-09-18 06:14 | Day surgery (SDC) | payer BC ==
[2024-09-15 15:54] VITALS: BMI 28.1
[~2024-09-18 06:14] MED LIST: Pre Op ABX Message 1 EACH MISC MISCELLANE ONE
[2024-09-18] MEDS ORDERED: LIDOCAINE 1% (10MG/ML) FOR IV START INTRADERMA PRN (06:41)
[2024-09-18] MEDS: IV FLUID CONTINUATION 1,000 ML IV ONE (06:45)
[2024-09-18] MEDS ORDERED: MIDAZOLAM 2 MG/2 ML VIAL IV PRN (07:00)
[2024-09-18] MEDS ORDERED: fentaNYL (PF) 50 MCG/ML 2 ML AMP IVP PRN (07:00)
[2024-09-18] MEDS: DEXAMETHASONE SOD PHOSPHATE 4 MG/ML 1 ML VIAL IV ONE (07:02)
[2024-09-18] MEDS: LACTATED RINGERS 1,000 ML IV SCH (07:02)
[2024-09-18] MEDS: ONDANSETRON 4 MG/2 ML VIAL IVP ONE (07:02)
[2024-09-18] MEDS ORDERED: MIDAZOLAM 2 MG/2 ML VIAL ONE (07:25)
[2024-09-18] MEDS ORDERED: fentaNYL (PF) 50 MCG/ML 2 ML AMP ONE (07:25)
[2024-09-18] MEDS ORDERED: KETOROLAC 15 MG/ML 1 ML VIAL ONE (07:25)
[2024-09-18] MEDS ORDERED: LIDOCAINE 1% INJ 10MG/ML (20 ML MDV) ONE (07:25)
[2024-09-18] MEDS ORDERED: PROPOFOL 10 MG/ML 20 ML VIAL IV ONE (07:25)
[2024-09-18] MEDS: FAMOTIDINE 20 MG/2 ML VIAL IV STA (07:28)
[2024-09-18] MEDS ORDERED: ONDANSETRON 4 MG/2 ML VIAL IVP PRN (07:58)
[2024-09-18] MEDS ORDERED: SIMETHICONE 80 MG CHEWABLE PO PRN (07:58)
[2024-09-18] MEDS ORDERED: diphenhydrAMINE 25 MG CAP PO PRN (07:58)
[2024-09-18] MEDS ORDERED: METOCLOPRAMIDE 5 MG/ML 2 ML VIAL IVP PRN (07:58)
[2024-09-18] MEDS ORDERED: diphenhydrAMINE 50 MG/ML 1 ML VIAL IVP PRN (07:58)
[2024-09-18] MEDS ORDERED: KETOROLAC 15 MG/ML 1 ML VIAL IVP PRN (07:58)
[2024-09-18] MEDS ORDERED: IBUPROFEN 600 MG TAB PO PRN (07:58)
[2024-09-18] MEDS ORDERED: ACETAMINOPHEN TAB 325 MG TAB PO PRN (07:58)
[2024-09-18] MEDS ORDERED: LACTATED RINGERS 1,000 ML IV SCH (08:00)
[2024-09-18 08:04] VITALS: TEMP 97
--- NOTE | 2024-09-18 08:04 | P.OP ---
Date of Procedure: 09/18/24 Preoperative Diagnosis: #1. 6-week incomplete Postoperative Diagnosis: Same Procedure(s) Performed: #1. Suction D&C Anesthesia: other (General By facemask) Surgeon: Thomas Rodriguez Estimated Blood Loss (ml): 10 IV fluids (ml): 500 Urine output (ml): 20 Pathology: other (Intrauterine contents/products of conception) Condition: stable Disposition: PACU Operative Findings: Preoperative pelvic examination demonstrated a 6 to 7-week retroverted mobile normal shaped uterus with normal adnexa bilaterally. Intraoperatively, the uterus sounded to approximately 9 cm. The cervix was somewhat dilated to start with. Tissue was seen passing through the suction tubing with a #8 curved aspiration curette on the first pass only. The typical gritty texture was encountered with sharp curettage. Description of Procedure: The patient was prepped and draped in usual fashion after general anesthesia was administered by the anesthesiologist. A weighted speculum was placed and the bladder drained of approximately 20 mL of clear mckay urine. The anterior lip of the cervix was grasped with a single-tooth tenaculum and uterus sounded to 9 cm. Serial dilation easily admitted the largest dilator. A #8 curved aspiration curette was placed to the fundus of the uterus and suction applied. After adequate suction had been built, thorough and circumferential suction curettage was carried out from the fundus to the cervix with tissue clearly seen passing through the tubing on the first pass. A second pass was made at which time no further tissue was noted. The suction curette was set aside in favor of a medium sharp curette which was utilized to again thoroughly and circumferentially curette the endometrial cavity with a typical gritty texture encountered throughout and no further tissue produced. 1 last pass was made with the suction curette with no further tissue noted. All instrumentation was removed. There is initially some moderate oozing from the os which was observed and abated with uterine massage. There was no ongoing bleeding from either the tenaculum site or any significant amount from the cervix at that time. All instrumentation was then removed. Estimated blood loss for the case was approximately 10 mL. There were no complications. All sponge, instrument, and needle counts were correct. The patient tolerated the procedure well and proceeded to the recovery room in stable condition.
[2024-09-18] MEDS: HYDROmorphone 0.5 MG/0.5 ML SYRINGE IVP PRN (08:24)
[2024-09-18] MEDS: Rhogam IMMUNE GLOBULIN 1,500 UNIT/1 ML IM ONE (08:46)
[2024-09-18 09:36] VITALS: RESP 18
[2024-09-18 09:38] VITALS: BP 100/74; PULSE 72
== END 2024-09-18 09:50 | disposition home or self-care (01) ==
LOC: OR 06:14
PROVIDERS: ATTEND Obstetrics & Gynecology
DX: O02.1 Missed abortion (principal); K21.9 Gastro-esophageal reflux disease without esophagitis; Z88.1 Allergy status to other antibiotic agents; Z90.49 Acquired absence of other specified parts of digestive tract
CPT/HCPCS: 88305; 58120; J2790; J2250; J1100; J2405; J2003; J3010; J1885; J2704; J1171; J1308